=== PATIENT | male | born 1985 | race Caucasian/White ===

== ENCOUNTER 2025-01-31 07:55 | Inpatient (IN) | payer OTHER ==
--- NOTE | 2025-01-31 08:17 | ED ---
General Adult HPI - General Chief complaint: Shortness of Breath Stated complaint: flu-like symptoms Time Seen by Provider: 01/31/25 08:00 Source: patient, EMS Mode of arrival: EMS Limitations: no limitations - History of Present Illness Initial comments: Dictation was produced using [employer] dictation software. please excuse any grammatical, word or spelling errors. Chief Complaint: 39-year-old male from [facility] detox [facility] for cough History of Present Illness: Patient 39-year-old male he is currently at [facility] detox facility recovering from alcohol. His last alcohol intake was 2 weeks ago. Patient states he has been coughing and short of breath since the second day he was there. He complains of low degree chills, sore throat and nasal congestion. States that his cough is nonproductive. States that everyone at the facility has been coughing. The ROS documented in this emergency department record has been reviewed and confirmed by me. Those systems with pertinent positive or negative responses have been documented in the HPI. All other systems are other negative and/or noncontributory. - Related Data Allergies Allergy/AdvReac Type Severity Reaction Status Date / Time No Known Allergies Allergy Verified 01/31/25 08:05 Review of Systems ROS Statement: Those systems with pertinent positive or pertinent negative responses have been documented in the HPI. ROS Other: All systems not noted in ROS Statement are negative. Past Medical History History of Any Multi-Drug Resistant Organisms: None Reported Past Surgical History: Appendectomy Past Psychological History: Anxiety, Depression Smoking Status: Current some day smoker Past Alcohol Use History: Heavy General Exam - General Exam Comments Initial Comments: PHYSICAL EXAM: General Impression: Alert and oriented x3, not in acute distress HEENT: Normocephalic atraumatic, extra-ocular movements intact, pupils equal and reactive to light bilaterally, dry mucous membranes Cardiovascular: Tachycardic Chest: Able to complete full sentences, no retractions, no tachypnea Abdomen: abdomen soft, non-tender, non-distended, no organomegaly Musculoskeletal: Pulses present and equal in all extremities, no peripheral ed k[place] Motor: no focal deficits noted Neurological: CN II-XII grossly intact, no focal motor or sensory deficits noted Skin: Intact with no visualized rashes Psych: Normal affect and mood Limitations: no limitations Course Vital Signs 01/31/25 01/31/25 01/31/25 07:58 08:06 08:56 Temperature 100.8 F H Pulse Rate 135 H 135 H 138 H Respiratory 17 20 28 H Rate Blood Pressure 107/70 100/65 112/74 O2 Sat by Pulse 94 L 94 L 93 L Oximetry EKG Findings - EKG Comments: EKG Findings:: My EKG interpretation: Ventricular rate 133, sinus tachycardia, QRS 80, QTc 333. No NE prolongation, no QTC prolongation, no ST or T-wave changes noted. Procedures - Sepsis Sepsis Focused Exam #1 Time Sepsis Criteria Met: 10:00 Sepsis Focused Exam Date: 01/31/25 Sepsis Focused Exam Time: 10:00 Sepsis Focused Exam Complete: Yes Vital Signs & RN Notes Reviewed: Yes Capillary Refill: < 2 Seconds: Fingers, Toes Peripheral Pulses: Normal: Radial (R), Radial (L), Posterior Tibialis (R), Posterior Tibialis (L), Dorsalis Pedis (R), Dorsalis Pedis (L) Skin Color: Normal for Patient Respiratory Exam: rales Cardiovascular Exam: tachycardia Medical Decision Making - Medical Decision Making Was pt. sent in by a medical professional or institution (, PA, BUGGY MAN, urgent care, hospital, or [place] health care facility...) When possible be specific @ -No Did you speak to anyone other than the patient for history (EMS, parent, family, police, friend...)? What history was obtained from this source @ -No Did you review nursing and triage notes (agree or disagree)? Why? @ -I reviewed and agree with nursing and triage notes Were old charts reviewed (outside hosp., previous admission, EMS record, old EKG, old radiological studies, urgent care reports/EKG's, [place] health care facility records)? Report findings @ -No old charts were reviewed Differential Diagnosis (chest pain, altered mental status, abdominal pain women, abdominal pain men, vaginal bleeding, musculoskeletal, weakness, fever, dyspnea, syncope, headache, dizziness, GI bleed, back pain, seizure, CVA, palpatations, mental health)? @ -Differential Dyspnea: Coronary syndrome, arrhythmia, tamponade, asthma, COPD, pulmonary embolism, pneumonia, pneumothorax, pulmonary effusion, anaphylaxis, diabetic ketoacidosis, flailed chest, pulmonary contusion, diaphragmatic rupture, anemia, neuromuscular, this is not meant to be an all-inclusive list. EKG interpreted by me (3pts min.). @ -See above X-rays interpreted by me (1pt min.). @ -Chest x-ray shows multilobar pneumonia CT interpreted by me (1pt min.). @ -None done U/S interpreted by me (1pt. min.). @ -None done What testing was considered but not performed or refused? (CT, X-rays, U/S, labs)? Why? @ -None What meds were considered but not given or refused? Why? @ -None Was smoking cessation discussed for >3mins.? @ -No Were there social determinants of health that impacted care today? How? (Homelessness, low income, unemployed, alcoholism, drug addiction, transportation, low edu. Level, literacy, decrease access to med. care, half-way, rehab)? @ -No Was there de-escalation of care discussed even if they declined (Discuss DNR or withdrawal of care, Hospice)? DNR status @ -No What co-morbidities impacted this encounter? (DM, HTN, Smoking, COPD, CAD, Cancer, CVA, ARF, Chemo, Hep., AIDS, mental health diagnosis, sleep apnea, morbid obesity)? @ -None Was patient admitted / discharged? Hospital course, mention meds given and route, prescriptions, significant lab abnormalities, going to OR and other pertinent info. @ -39-year-old male with respiratory infectious symptoms. Unlikely patient suffering from any alcohol withdrawal given that his last alcohol intake was 2 weeks ago. Vital signs shows tachycardia 135 secondary to pyrexia. 94% on room air. Blood pressure is within acceptable limits. Laboratory evaluation obtained. Leukocytosis 17.0. Metabolic panel shows sodium 130. Lactic acidosis less than 4 of 3.6. Coronavirus positive. X-ray shows pneumonia. Patient given antibiotics will be admitted consultation to pulmonology. At this point patient not hypotensive and has a lactic acid that dose is less than 4. Systolic blood pressure is above 90 and MAP is greater than 65. Nonetheless patient given 30 cc/kg bolus. Patient will be admitted with consultation to pulmonology. Given antibiotics. Did you discuss the management of the patient with other professionals (professionals i.e. , PA, BUGGY MAN, lab, RT, psych nurse, social worker masters, gas adjuster, teacher, parole or probation officer, manager case)? Give summary @ -No Was critical care preformed (if so, how long)? @ -No Undiagnosed new problem with uncertain prognosis? @ -No Drug Therapy requiring intensive monitoring for toxicity (Heparin, Nitro, Insulin, Cardizem)? @ -No Were any procedures done? @ -No Diagnosis/symptom? Acute, or Chronic, or Acute on Chronic? Uncomplicated (without systemic symptoms) or Complicated (systemic symptoms)? @ -Multilobar pneumonia Side effects of treatment? @ -No Exacerbation, Progression, or Severe Exacerbation? @ -No Poses a threat to life or bodily function? How? (Chest pain, USA, CT, pneumonia, PE, COPD, DKA, ARF, appy, cholecystitis, CVA, Diverticulitis, Homicidal, Suicidal, threat to staff... and all critical care pts) @ -yes - Lab Data Result diagrams: 01/31/25 08:33 01/31/25 08:33 Lab Results 01/31/25 01/31/25 01/31/25 Range/Units 08:09 08:33 08:33 WBC (3.8-10.6) k/uL RBC (4.30-5.90) m/uL Hgb (13.0-17.5) gm/dL Hct (39.0-53.0) % MCV (80.0-100.0) fL MCH (25.0-35.0) pg MCHC (31.0-37.0) g/dL RDW (11.5-15.5) % Plt Count (150-450) k/uL MPV Neutrophils % (Manual) % Band Neuts % (Manual) % Lymphocytes % (Manual) % Monocytes % (Manual) % Metamyelocytes % % Neutrophils # (Manual) (1.3-7.7) k/uL Lymphocytes # (Manual) (1.0-4.8) k/uL Monocytes # (Manual) (0-1.0) k/uL Metamyelocytes # (Man) (0) k/uL Nucleated RBCs (0-0) /100 WBC Manual Slide Review Toxic Vacuolation RBC Morphology Sodium (137-145) mmol/L Potassium (3.5-5.1) mmol/L Chloride (98-107) mmol/L Carbon Dioxide (22-30) mmol/L Anion Gap mmol/L BUN (9-20) mg/dL Creatinine (0.66-1.25) mg/dL Est GFR (CKD-EPI)AfAm (>60 ml/min/1.73 sqM) Est GFR (CKD-EPI)NonAf (>60 ml/min/1.73 sqM) Glucose (74-99) mg/dL Plasma Lactic Acid Chauncey 3.6 H* (0.7-2.0) mmol/L Calcium (8.4-10.2) mg/dL Magnesium (1.6-2.3) mg/dL Total Bilirubin (0.2-1.3) mg/dL AST (17-59) U/L ALT (4-49) U/L Alkaline Phosphatase (38-126) U/L Troponin I <0.012 (0.000-0.034) ng/mL Total Protein (6.3-8.2) g/dL Albumin (3.5-5.0) g/dL TSH (0.465-4.680) mIU/L Influenza Type A (PCR) Not Detected (Not Detectd) Influenza Type B (PCR) Not Detected (Not Detectd) RSV (PCR) Not Detected (Not Detectd) SARS-CoV-2 (PCR) Detected A (Not Detectd) 01/31/25 01/31/25 Range/Units 08:33 08:33 WBC 17.0 H (3.8-10.6) k/uL RBC 3.92 L (4.30-5.90) m/uL Hgb 12.3 L (13.0-17.5) gm/dL Hct 37.2 L (39.0-53.0) % MCV 95.0 (80.0-100.0) fL MCH 31.4 (25.0-35.0) pg MCHC 33.1 (31.0-37.0) g/dL RDW 13.7 (11.5-15.5) % Plt Count 360 (150-450) k/uL MPV 8.6 Neutrophils % (Manual) 77 % Band Neuts % (Manual) 14 % Lymphocytes % (Manual) 2 % Monocytes % (Manual) 6 % Metamyelocytes % 2 % Neutrophils # (Manual) 15.40 H (1.3-7.7) k/uL Lymphocytes # (Manual) 0.34 L (1.0-4.8) k/uL Monocytes # (Manual) 1.02 H (0-1.0) k/uL Metamyelocytes # (Man) 0.34 H (0) k/uL Nucleated RBCs 0 (0-0) /100 WBC Manual Slide Review Performed Toxic Vacuolation Present RBC Morphology Normal Sodium 130 L (137-145) mmol/L Potassium 4.2 (3.5-5.1) mmol/L Chloride 94 L (98-107) mmol/L Carbon Dioxide 25 (22-30) mmol/L Anion Gap 11 mmol/L BUN 11 (9-20) mg/dL Creatinine 1.27 H (0.66-1.25) mg/dL Est GFR (CKD-EPI)AfAm 82 (>60 ml/min/1.73 sqM) Est GFR (CKD-EPI)NonAf 71 (>60 ml/min/1.73 sqM) Glucose 111 H (74-99) mg/dL Plasma Lactic Acid Chauncey (0.7-2.0) mmol/L Calcium 8.0 L (8.4-10.2) mg/dL Magnesium 1.5 L (1.6-2.3) mg/dL Total Bilirubin 1.2 (0.2-1.3) mg/dL AST 39 (17-59) U/L ALT 39 (4-49) U/L Alkaline Phosphatase 105 (38-126) U/L Troponin I (0.000-0.034) ng/mL Total Protein 5.7 L (6.3-8.2) g/dL Albumin 3.0 L (3.5-5.0) g/dL TSH 1.050 (0.465-4.680) mIU/L Influenza Type A (PCR) (Not Detectd) Influenza Type B (PCR) (Not Detectd) RSV (PCR) (Not Detectd) SARS-CoV-2 (PCR) (Not Detectd) Disposition Clinical Impression: Pneumonia Disposition: ADMITTED IP TO THIS [facility] Condition: Serious Referrals: None,Stated [Primary Care Provider] - 1-2 days Decision Time: 09:59
[2025-01-31] MEDS: ACETAMINOPHEN TAB 500 MG TAB PO STA (08:55)
[2025-01-31] MEDS: SODIUM CHLORIDE 0.9% 1,000 ML IV STA (08:56)
[2025-01-31 09:00] LABS: Influenza A Not Detected (Not Detectd); Influenza B Not Detected (Not Detectd); RSV Not Detected (Not Detectd)
[2025-01-31 09:02] LABS: AST 39 U/L (17-59); African American GFR (CKD) 82 (>60 ml/min/1.73 sqM); Alkaline Phosphatase 105 U/L (38-126); Anion Gap 11 mmol/L; Blood Urea Nitrogen 11 mg/dL (9-20); Carbon Dioxide 25 mmol/L (22-30); Chloride 94 mmol/L (98-107); Glucose 111 mg/dL (74-99); Magnesium 1.5 mg/dL (1.6-2.3); Non-African American GFR(CKD) 71 (>60 ml/min/1.73 sqM); Potassium 4.2 mmol/L (3.5-5.1); Sodium 130 mmol/L (137-145); Total Bilirubin 1.2 mg/dL (0.2-1.3); Total Protein 5.7 g/dL (6.3-8.2)
--- NOTE | 2025-01-31 09:03 | XR ---
EXAMINATION TYPE: XR chest 2V DATE OF EXAM: 01/31/2025 8:55 AM COMPARISON: None TECHNIQUE: XR chest 2V Frontal and lateral views of the chest. CLINICAL INDICATION:Male, 39 years old with history of cough; FINDINGS: Lungs/Pleura: Bibasilar airspace opacities with a large left upper lobe consolidative opacity. Pulmonary vascularity: Unremarkable. Heart/mediastinum: Cardiomediastinal silhouette is unremarkable. Musculoskeletal: No acute osseous pathology. IMPRESSION: Bibasilar airspace opacities with a large left upper lobe consolidative opacity. Findings are favored to represent pneumonia. Continued surveillance is recommended. [facility], , 01/31/2025 9:00 AM
[2025-01-31 09:09] LABS: ALT 39 U/L (4-49)
[2025-01-31 09:12] LABS: HCT 37.2 % (39.0-53.0); HGB 12.3 gm/dL (13.0-17.5); MCH 31.4 pg (25.0-35.0); MCHC 33.1 g/dL (31.0-37.0); Mean Platelet Volume 8.6; Platelet Count 360 k/uL (150-450); RBC 3.92 m/uL (4.30-5.90); RDW 13.7 % (11.5-15.5)
[2025-01-31 09:51] LABS: Band Neutrophils % 14 %; Lymphocytes # (M) 0.34 k/uL (1.0-4.8); Metamyelocytes # (M) 0.34 k/uL (0); Metamyelocytes % 2 %; Monocytes # (M) 1.02 k/uL (0-1.0); Neutrophils % (M) 77 %; Nucleated Red Blood Cells 0 /100 WBC (0-0); RBC Morphology Normal; Total Cells Counted 201; Toxic Vacuolation Present
[2025-01-31] MEDS ORDERED: PNEUMONIA PROTOCOL UTILIZED 1 EACH MISC PO PRN (09:54)
[2025-01-31] MEDS: SODIUM CHLORIDE 0.9% IV STA (10:47)
[2025-01-31] MEDS: cefTRIAXone IN SWFI 1,000 MG/10 ML SYRINGE IVP STA (10:48)
[2025-01-31] MEDS: MAGNESIUM SULFATE-D5W PMX 1 GM in DEXTROSE/WATER 1 100ML.BAG IVPB SCH (10:59)
[2025-01-31] MEDS: AZITHROMYCIN 500 MG in SODIUM CHLORIDE 0.9% 250 ML IVPB STA (11:00)
--- NOTE | 2025-01-31 11:05 | P.HPIM ---
History of Present Illness Patient is a 59-year-old male currently at [facility] facility for alcohol use came in with 2 weeks of patient had fevers yesterday at. Patient is found to have temperature of 100.8 here. Patient has a left upper lobe pneumon ia Patient was having cough and sputum production for 2 weeks. Sputum cultures and blood cultures were ordered and were sent. Patient is coughing nonstop patient has been sick for 2 weeks patient is also positive for COVID-19. Patient has lactic acidosis with highly elevated lactic acid and is septic. REVIEW OF SYSTEMS: All other systems are negative except those mentioned in the HPI PHYSICAL EXAMINATION: GENERAL: The patient is alert and oriented x3, not in any acute distress. Well d eveloped, well nourished. HEENT: Pupils are round and equally reacting to light. EOMI. No scleral icterus. No conjunctival pallor. Normocephalic, atraumatic. No pharyngeal erythema. No thyromegaly. CARDIOVASCULAR: S1 and S2 present. No murmurs, rubs, or gallops. PULMONARY: Crackles in the left upper lung keith. ABDOMEN: Soft, nontender, nondistended, normoactive bowel sounds. No palpable organomegaly. MUSCULOSKELETAL: No joint swelling or deformity. EXTREMITIES: No cyanosis, clubbing, or pedal edema. NEUROLOGICAL: Gross neurological examination did not reveal any focal deficits. SKIN: No rashes. Assessment and plan -Sepsis secondary to left upper lobe pneumonia: Possibly of staphylococcal pneumonia cannot be ruled out sputum cultures were obtained. Patient will be switched to doxycycline to cover MRSA he has any pneumonia secondary to MRSA. Patient most probably has pneumococcal pneumonia. Patient also started on Rocephin as well. Azithromycin will be discontinued. Patient will be started on IV normal saline at 130 cc/h. Patient probably has COVID-19 and secondary bacterial infection -COVID-19 positive test probably had COVID-19 14 days ago presently secondary bacterial pneumonia -Acute renal failure prerenal azotemia vasomotor nephropathy and acute treatment necrosis from sepsis patient currently on iron. Repeat labs tomorrow -Lactic acidosis secondary to sepsis Alcohol use: Coming from rehab DVT prophylaxis: Early ambulation text Past Medical History History of Any Multi-Drug Resistant Organisms: None Reported Past Surgical History: Appendectomy Past Psychological History: Anxiety, Depression Smoking Status: Current some day smoker Past Alcohol Use History: Heavy Medications and Allergies Allergies Allergy/AdvReac Type Severity Reaction Status Date / Time No Known Allergies Allergy Verified 01/31/25 08:05 Physical Exam Vitals: Vital Signs Temp Pulse Resp BP Pulse Ox 01/31/25 08:56 138 H 28 H 112/74 93 L 01/31/25 08:06 135 H 20 100/65 94 L 01/31/25 07:58 100.8 F H 135 H 17 107/70 94 L Intake and Output 01/30/25 01/31/25 01/31/25 22:59 06:59 14:59 Other: Weight 72.575 kg Results CBC & Chem 7: 01/31/25 08:33 01/31/25 08:33 Labs: Abnormal Lab Results - Last 24 Hours (Table) 01/31/25 01/31/25 01/31/25 Range/Units 08:09 08:33 08:33 WBC 17.0 H (3.8-10.6) k/uL RBC 3.92 L (4.30-5.90) m/uL Hgb 12.3 L (13.0-17.5) gm/dL Hct 37.2 L (39.0-53.0) % Neutrophils # (Manual) 15.40 H (1.3-7.7) k/uL Lymphocytes # (Manual) 0.34 L (1.0-4.8) k/uL Monocytes # (Manual) 1.02 H (0-1.0) k/uL Metamyelocytes # (Man) 0.34 H (0) k/uL Sodium (137-145) mmol/L Chloride (98-107) mmol/L Creatinine (0.66-1.25) mg/dL Glucose (74-99) mg/dL Plasma Lactic Acid Chauncey 3.6 H* (0.7-2.0) mmol/L Calcium (8.4-10.2) mg/dL Magnesium (1.6-2.3) mg/dL Total Protein (6.3-8.2) g/dL Albumin (3.5-5.0) g/dL SARS-CoV-2 (PCR) Detected A (Not Detectd) 01/31/25 Range/Units 08:33 WBC (3.8-10.6) k/uL RBC (4.30-5.90) m/uL Hgb (13.0-17.5) gm/dL Hct (39.0-53.0) % Neutrophils # (Manual) (1.3-7.7) k/uL Lymphocytes # (Manual) (1.0-4.8) k/uL Monocytes # (Manual) (0-1.0) k/uL Metamyelocytes # (Man) (0) k/uL Sodium 130 L (137-145) mmol/L Chloride 94 L (98-107) mmol/L Creatinine 1.27 H (0.66-1.25) mg/dL Glucose 111 H (74-99) mg/dL Plasma Lactic Acid Chauncey (0.7-2.0) mmol/L Calcium 8.0 L (8.4-10.2) mg/dL Magnesium 1.5 L (1.6-2.3) mg/dL Total Protein 5.7 L (6.3-8.2) g/dL Albumin 3.0 L (3.5-5.0) g/dL SARS-CoV-2 (PCR) (Not Detectd)
[2025-01-31] MEDS: SODIUM CHLORIDE 0.9% 1,000 ML IV SCH (12:31)
[2025-01-31] MEDS: DOXYCYCLINE 100 MG in SODIUM CHLORIDE 0.9% 100 ML IVPB SCH (12:34)
[2025-01-31] MEDS: ACETAMINOPHEN TAB 500 MG TAB PO PRN (14:17)
--- NOTE | 2025-01-31 14:21 | P.CNPUL ---
History of Present Illness Consult date: 01/31/25 Reason for consult: dyspnea, hypoxemia, pneumonia History of present illness: This is a 39-year-old male patient alcoholic was undergoing detoxification at [facility]. Approximate 10 days ago, the patient developed symptoms of URI and subsequently, his condition was waxing and waning and progressively got worse over the past 3 to 4 days. The patient had increased cough and his cough was becoming more vigorous with sputum production and the patient was feeling progressively more sick and he was spiking temperatures in addition. No pleu risy. No hemoptysis. Based on those symptoms, the patient presented to the Emergency Department. In the ED, the patient was found to be afebrile and tachycardic. Normotensive. Pulse ox on room air oxygen was 92 to 93%. White cell count was at 17, hemoglobin 12.3 and a platelet count of 360. BUN of 11 with a creatinine of 1.2 and sodium levels at 130 and a potassium level is at 4.2. Lactic acid level was 3.6 down to 3.4. Troponins are negative. LFTs are normal. COVID-19 testing is still positive. The patient had a chest x-ray that showed extensive left upper lobe consolidation/airspace disease and the patient had a large area of consolidative process in the left upper lobe. There was also bibasilar airspace changes. Based on that, the patient was started on broad-spectrum antibiotics. The patient is currently on IV Rocephin and doxycycline. Sputum Gram stain and culture was ordered. His procalcitonin level needs to be checked. Blood culture is to be checked in addition to sputum Gram stain and culture. No signs of any delirium tremens. No altered mentation. He seems to be quite comfortable at this point in time. He is also on IV fluids with normal citrate of 130 cc an hour. Review of Systems Constitutional: Reports fatigue, Reports weakness Eyes: denies as per HPI, denies blurred vision, denies bulging eye, denies decreased vision, denies diplopia, denies discharge, denies dry eye, denies ir ritation, denies itching, denies pain, denies photophobia, denies loss of peripheral vision, denies loss of vision, denies tunnel vision/blind spots Ears: deny: decreased hearing, ear discharge, earache, tinnitus Ears, nose, mouth and throat: Reports as per HPI Breasts: absent: as per HPI, gynecomastia Cardiovascular: Reports decreased exercise tolerance Respiratory: Reports congestion, Reports cough, Reports cough with sputum, Reports dyspnea Gastrointestinal: Reports as per HPI Genitourinary: Reports as per HPI Musculoskeletal: Reports as per HPI Musculoskeletal: absent: ankle pain, ankle stiffness, ankle swelling, as per HPI, elbow pain, elbow stiffness, elbow swelling, foot pain, foot stiffness, foot swelling, hand pain, hand stiffness, hand swelling, hip pain, hip stiffness, hip swelling, knee pain, knee stiffness, knee swelling, shoulder pain, shoulder stiffness, shoulder swelling, wrist pain, wrist stiffness, wrist swelling Integumentary: Reports as per HPI Neurological: Reports as per HPI Psychiatric: Reports as per HPI Endocrine: Reports as per HPI Hematologic/Lymphatic: Reports as per HPI Allergic/Immunologic: Reports as per HPI Past Medical History Additional Past Medical History / Comment(s): alcoholism fifth of Vodka History of Any Multi-Drug Resistant Organisms: None Reported Past Surgical History: Appendectomy Past Psychological History: Anxiety, Depression Smoking Status: Current some day smoker Past Alcohol Use History: Heavy Medications and Allergies Home Medications Medication Instructions Recorded Confirmed Type Acetaminophen [Tylenol] 650 mg PO Q4H PRN MDD 2600 mg 01/31/25 01/31/25 History Calcium Phos/D3/Magnesium/Zinc 1 tab PO TID PRN 01/31/25 01/31/25 History [Dbhrxuq-Lfc-Iksh-Vitamin D3] Chlorpheniramine Maleate 4 mg PO Q4H PRN 01/31/25 01/31/25 History [Chlor-Trimeton] Ibuprofen [Motrin Ib] 600 mg PO Q6H PRN 01/31/25 01/31/25 History Loperamide HCl [Imodium A-D] 4 mg PO QID PRN MDD 16mg 01/31/25 01/31/25 History Melatonin 10 mg PO HS PRN 01/31/25 01/31/25 History Multivitamins, Thera [Multivitamin 1 tab PO DAILY 01/31/25 01/31/25 History (formulary)] Mylanta Regular Strength 30 ml PO Q4H PRN 01/31/25 01/31/25 History Thiamine [Vitamin B-1] 100 mg PO DAILY 01/31/25 01/31/25 History guaiFENesin [guaiFENesin Oral 200 mg PO Q4H PRN 01/31/25 01/31/25 History Solution] ondansetron HCL [Zofran] 8 mg PO Q6H PRN 01/31/25 01/31/25 History traZODone HCL [Desyrel] 50 - 150 mg PO HS PRN 01/31/25 01/31/25 History Allergies Allergy/AdvReac Type Severity Reaction Status Date / Time No Known Allergies Allergy Verified 01/31/25 11:26 Physical Exam Vitals: Vital Signs Temp Pulse Resp BP Pulse Ox 01/31/25 08:56 138 H 28 H 112/74 93 L 01/31/25 08:06 135 H 20 100/65 94 L 01/31/25 07:58 100.8 F H 135 H 17 107/70 94 L Intake and Output 01/30/25 01/31/25 01/31/25 22:59 06:59 14:59 Other: Weight 72.575 kg GENERAL: The patient is alert and oriented x3, not in any acute distress. Well developed, well nourished. The patient remains on room air oxygen. HEENT: Pupils are round and equally reacting to light. EOMI. No scleral icterus. No conjunctival pallor. Normocephalic, atraumatic. No pharyngeal erythema. No thyromegaly. CARDIOVASCULAR: S1 and S2 present. No murmurs, rubs, or gallops. PULMONARY: Crackles in the left upper lung keith. ABDOMEN: Soft, nontender, nondistended, normoactive bowel sounds. No palpable organomegaly. MUSCULOSKELETAL: No joint swelling or deformity. EXTREMITIES: No cyanosis, clubbing, or pedal edema. NEUROLOGICAL: Gross neurological examination did not reveal any focal deficits. SKIN: No rashes. Results - Laboratory Findings CBC and BMP: 01/31/25 08:33 01/31/25 08:33 Abnormal lab findings: Abnormal Labs 01/31/25 01/31/25 01/31/25 08:09 08:33 08:33 WBC 17.0 H RBC 3.92 L Hgb 12.3 L Hct 37.2 L Neutrophils # (Manual) 15.40 H Lymphocytes # (Manual) 0.34 L Monocytes # (Manual) 1.02 H Metamyelocytes # (Man) 0.34 H Sodium Chloride Creatinine Glucose Plasma Lactic Acid Chauncey 3.6 H* Calcium Magnesium Total Protein Albumin SARS-CoV-2 (PCR) Detected A 01/31/25 08:33 WBC RBC Hgb Hct Neutrophils # (Manual) Lymphocytes # (Manual) Monocytes # (Manual) Metamyelocytes # (Man) Sodium 130 L Chloride 94 L Creatinine 1.27 H Glucose 111 H Plasma Lactic Acid Chauncey Calcium 8.0 L Magnesium 1.5 L Total Protein 5.7 L Albumin 3.0 L SARS-CoV-2 (PCR) - Diagnostic Findings Chest x-ray: image reviewed Assessment and Plan Plan: Acute multilobar pneumonia with extensive consolidation of the left upper lobe and bibasilar airspace disease. Presentation is suggestive of bacterial pneumonia that follows an acute viral/COVID-19 infection. The patient has alcoholism. No reported aspiration. He was at [facility]. Acute COVID-19 infection, and the patient has had previous COVID-19 infections and this is according to him his third infection. Acute hypoxic respiratory i failure, currently on room air oxygen with a pulse ox of 92% Acute shortness of breath secondary to above Sinus tachycardia secondary to above. Rule out underlying pneumonia and related sepsis Acute kidney injury Alcoholism in the patient drinks a fifth of vodka on a daily basis. No signs of any delirium tremens and the patient is currently undergoing detoxification at [facility]. Plan Monitor oxygenation closely and titrate oxygen flow to maintain saturation above 90% Check procalcitonin level Check blood cultures and sputum cultures Agree on Rocephin and doxycycline IV Solu-Medrol 40 mg every 8 hours Daily chest x-rays Monitor renal function continue IV fluids normal saline Watch for any signs of delirium tremens Will continue to follow.
[2025-01-31] MEDS: ALBUTEROL HFA INHALER INHALATION PRN (15:22)
[2025-01-31] MEDS: methylPREDNISolone SOD SUCCI 40 MG/ML 1 ML VIAL IV SCH (15:23)
[2025-01-31] MEDS: SODIUM CHLORIDE 0.9% 1,000 ML IV ONE (15:43)
[2025-02-01 02:42] LABS: African American GFR (CKD) >90 (>60 ml/min/1.73 sqM); Anion Gap 11 mmol/L; Blood Urea Nitrogen 9 mg/dL (9-20); Calcium 7.9 mg/dL (8.4-10.2); Carbon Dioxide 23 mmol/L (22-30); Chloride 97 mmol/L (98-107); Glucose 119 mg/dL (74-99); Non-African American GFR(CKD) >90 (>60 ml/min/1.73 sqM); Potassium 4.2 mmol/L (3.5-5.1); Sodium 131 mmol/L (137-145)
[2025-02-01 02:53] LABS: HCT 39.4 % (39.0-53.0); HGB 12.7 gm/dL (13.0-17.5); MCH 31.5 pg (25.0-35.0); MCHC 32.3 g/dL (31.0-37.0); MCV 97.5 fL (80.0-100.0); Mean Platelet Volume 8.5; Platelet Count 448 k/uL (150-450); RBC 4.04 m/uL (4.30-5.90); RDW 13.9 % (11.5-15.5); WBC 25.1 k/uL (3.8-10.6)
--- NOTE | 2025-02-01 07:06 | XR ---
EXAMINATION TYPE: XR chest 1V DATE OF EXAM: 02/01/2025 4:35 AM COMPARISON: Chest radiographs from 01/31/2025 TECHNIQUE: XR chest 1V Frontal view of the chest. CLINICAL INDICATION:Male, 39 years old with history of Follow-up pneumonia; FINDINGS: Lungs/Pleura: No pleural effusion or pneumothorax. Increasing right upper lung patchy opacities with significant increase of left lung consolidation with air bronchograms most prominent within the left upper and midlung. Pulmonary vascularity: Unremarkable. Heart/mediastinum: Cardiomediastinal silhouette is partially obscured due to overlying and adjacent o pacities. Musculoskeletal: No acute osseous pathology. IMPRESSION: Overall worsening left lung consolidation and right upper lung patchy airspace opacities. Favored to represent worsening pneumonia. [facility], , 02/01/2025 7:04 AM
[2025-02-01] MEDS ORDERED: AZITHROMYCIN 500 MG in SODIUM CHLORIDE 0.9% 250 ML IVPB SCH (09:00)
[2025-02-01] MEDS ORDERED: VANCOMYCIN IV PER PHARMACY 1 EACH MISC MISCELLANE PRN (09:48)
[2025-02-01] MEDS: PIPERACILLIN-TAZOBACTAM 3.375 GM in SODIUM CHLORIDE 0.9% 100 ML IVPB SCH (10:11)
[2025-02-01] MEDS: LEVOFLOXACIN 750 MG TAB PO SCH (10:19)
[2025-02-01] MEDS: VANCOMYCIN 1,250 MG in SODIUM CHLORIDE 0.9% 250 ML IVPB ONE (10:59)
--- NOTE | 2025-02-01 11:36 | P.PN ---
Subjective Patient is a 59-year-old male currently at [facility] for alcohol use came in with 2 weeks of patient had fevers yesterday at. Patient is found to have temperature of 100.8 here. Patient has a left upper lobe pneumonia Patient was having cough and sputum production for 2 weeks. Sputum cultures and blood cultures were ordered and were sent. Patient is coughing nonstop patient has been sick for 2 weeks patient is also positive for COVID-19. Patient has lactic acidosis with highly elevated lactic acid and is septic. 02/01/2025 Patient was hypotensive yesterday evening after fluid resuscitate him patient is feeling little bit better today chest x-ray showed worsening infiltrate patient was switched to vancomycin, piperacillin/tazobactam and levofloxacin to cover MRSA and atypical pneumonia as well. Urine Legionella antigen is pending PHYSICAL EXAMINATION: GENERAL: The patient is alert and oriented x3, not in any acute distress. Well developed, well nourished. HEENT: Pupils are round and equally reacting to light. EOMI. No scleral icterus. No conjunctival pallor. Normocephalic, atraumatic. No pharyngeal erythema. No thyromegaly. CARDIOVASCULAR: S1 and S2 present. No murmurs, rubs, or gallops. PULMONARY: Crackles in the left upper lung keith. ABDOMEN: Soft, nontender, nondistended, normoactive bowel sounds. No palpable organomegaly. MUSCULOSKELETAL: No joint swelling or deformity. EXTREMITIES: No cyanosis, clubbing, or pedal edema. NEUROLOGICAL: Gross neurological examination did not reveal any focal deficits. SKIN: No rashes. Assessment and plan -Severe sepsis secondary to left upper lobe pneumonia: Possibly of staphylococcal pneumonia cannot be ruled out sputum cultures were obtained. Patient COVID-19 is positive as well. Patient is presently on IV vancomycin piperacillin/tazobactam and levofloxacin. -COVID-19 positive test probably had COVID-19 14 days ago presently secondary bacterial pneumonia -Acute renal failure prerenal azotemia vasomotor nephropathy and acute treatment necrosis from sepsis, improved repeat labs tomorrow -Lactic acidosis secondary to sepsis Alcohol use: Coming from rehab DVT prophylaxis: Early ambulation text Objective - Vital Signs Vital signs: Vital Signs Temp 98.4 F 02/01/25 08:08 Pulse 103 H 02/01/25 08:08 Resp 20 02/01/25 08:08 BP 122/82 02/01/25 08:08 Pulse Ox 92 L 02/01/25 08:08 FiO2 21 01/31/25 14:29 Intake & Output 01/31/25 02/01/25 02/01/25 18:59 06:59 18:59 Weight 72.575 kg - Labs CBC & Chem 7: 02/01/25 00:00 02/01/25 00:00 Labs: Abnormal Lab Results - Last 24 Hours (Table) 01/31/25 01/31/25 01/31/25 Range/Units 12:04 12:04 14:59 WBC (3.8-10.6) k/uL RBC (4.30-5.90) m/uL Hgb (13.0-17.5) gm/dL Sodium (137-145) mmol/L Chloride (98-107) mmol/L Glucose (74-99) mg/dL Plasma Lactic Acid Chauncey 3.4 H* 4.2 H* (0.7-2.0) mmol/L Calcium (8.4-10.2) mg/dL Procalcitonin 5.71 H (0.02-0.50) ng/mL 01/31/25 01/31/25 02/01/25 Range/Units 19:10 23:41 00:00 WBC 25.1 H (3.8-10.6) k/uL RBC 4.04 L (4.30-5.90) m/uL Hgb 12.7 L (13.0-17.5) gm/dL Sodium (137-145) mmol/L Chloride (98-107) mmol/L Glucose (74-99) mg/dL Plasma Lactic Acid Chauncey 4.6 H* 3.4 H* (0.7-2.0) mmol/L Calcium (8.4-10.2) mg/dL Procalcitonin (0.02-0.50) ng/mL 02/01/25 02/01/25 02/01/25 Range/Units 00:00 05:39 10:23 WBC (3.8-10.6) k/uL RBC (4.30-5.90) m/uL Hgb (13.0-17.5) gm/dL Sodium 131 L (137-145) mmol/L Chloride 97 L (98-107) mmol/L Glucose 119 H (74-99) mg/dL Plasma Lactic Acid Chauncey 2.2 H* 2.3 H* (0.7-2.0) mmol/L Calcium 7.9 L (8.4-10.2) mg/dL Procalcitonin (0.02-0.50) ng/mL
--- NOTE | 2025-02-01 14:00 | P.PN ---
Subjective Progress Note Date: 02/01/25 This is a 39-year-old male patient alcoholic was undergoing detoxification at [facility]. Approximate 10 days ago, the patient developed symptoms of URI and subsequently, his condition was waxing and waning and progressively got worse over the past 3 to 4 days. The patient had increased cough and his cough was becoming more vigorous with sputum production and the patient was feeling progressively more sick and he was spiking temperatures in addition. No pleurisy. No hemoptysis. Based on those symptoms, the patient presented to the Emergency Department. In the ED, the patient was found to be afebrile and tachycardic. Normotensive. Pulse ox on room air oxygen was 92 to 93%. White cell count was at 17, hemoglobin 12.3 and a platelet count of 360. BUN of 11 with a creatinine of 1.2 and sodium levels at 130 and a potassium level is at 4.2. Lactic acid level was 3.6 down to 3.4. Troponins are negative. LFTs are normal. COVID-19 testing is still positive. The patient had a chest x-ray that showed extensive left upper lobe consolidation/airspace disease and the patient had a large area of consolidative process in the left upper lobe. There was also bibasilar airspace changes. Based on that, the patient was started on broad-spectrum antibiotics. The patient is currently on IV Rocephin and doxycycline. Sputum Gram stain and culture was ordered. His procalcitonin level needs to be checked. Blood culture is to be checked in addition to sputum Gram stain and culture. No signs of any delirium tremens. No altered mentation. He seems to be quite comfortable at this point in time. He is also on IV fluids with normal citrate of 130 cc an hour. On 02/01/2025, the patient is being seen in follow-up in the emergency department. Overnight, the patient was kept in the ED as he was being treated for extensive left lung pneumonia. He is afebrile. His left ureteral cardiac complaints yesterday. Hemodynamically stable. Nevertheless, the follow-up chest x-ray shows marked progression of the left upper lobe pulmonary consolidation and the patient has extensive consolidation in the left upper lobe. The white cell count is up to 25, it was 12.7 and a platelet count is at 448. Electrolytes are all within normal limits. Lactic acid level dropped from 3.4 down to 1.8. His procalcitonin level is at 5.7. He is positive for COVID- 19. Based on that, further antibiotic adjustments were done and I put the patient on a combination of Zosyn and vancomycin and Levaquin. Objective - Vital Signs Vital signs: Vital Signs Temp 98.4 F 02/01/25 08:08 Pulse 103 H 02/01/25 08:08 Resp 20 02/01/25 08:08 BP 122/82 02/01/25 08:08 Pulse Ox 92 L 02/01/25 08:08 FiO2 21 01/31/25 14:29 Intake & Output 01/31/25 02/01/25 02/01/25 18:59 06:59 18:59 Weight 72.575 kg - Exam GENERAL: The patient is alert and oriented x3, not in any acute distress. Well developed, well nourished. The patient remains on room air oxygen. HEENT: Pupils are round and equally reacting to light. EOMI. No scleral icterus. No conjunctival pallor. Normocephalic, atraumatic. No pharyngeal erythema. No thyromegaly. CARDIOVASCULAR: S1 and S2 present. No murmurs, rubs, or gallops. PULMONARY: Crackles in the left upper lung keith. ABDOMEN: Soft, nontender, nondistended, normoactive bowel sounds. No palpable organomegaly. MUSCULOSKELETAL: No joint swelling or deformity. EXTREMITIES: No cyanosis, clubbing, or pedal edema. NEUROLOGICAL: Gross neurological examination did not reveal any focal deficits. SKIN: No rashes. - Labs CBC & Chem 7: 02/01/25 00:00 02/01/25 00:00 Labs: Abnormal Lab Results - Last 24 Hours (Table) 01/31/25 01/31/25 01/31/25 Range/Units 08:33 12:04 12:04 WBC (3.8-10.6) k/uL RBC (4.30-5.90) m/uL Hgb (13.0-17.5) gm/dL Neutrophils # (Manual) 15.40 H (1.3-7.7) k/uL Lymphocytes # (Manual) 0.34 L (1.0-4.8) k/uL Monocytes # (Manual) 1.02 H (0-1.0) k/uL Metamyelocytes # (Man) 0.34 H (0) k/uL Sodium (137-145) mmol/L Chloride (98-107) mmol/L Glucose (74-99) mg/dL Plasma Lactic Acid Chauncey 3.4 H* (0.7-2.0) mmol/L Calcium (8.4-10.2) mg/dL Procalcitonin 5.71 H (0.02-0.50) ng/mL 01/31/25 01/31/25 01/31/25 Range/Units 14:59 19:10 23:41 WBC (3.8-10.6) k/uL RBC (4.30-5.90) m/uL Hgb (13.0-17.5) gm/dL Neutrophils # (Manual) (1.3-7.7) k/uL Lymphocytes # (Manual) (1.0-4.8) k/uL Monocytes # (Manual) (0-1.0) k/uL Metamyelocytes # (Man) (0) k/uL Sodium (137-145) mmol/L Chloride (98-107) mmol/L Glucose (74-99) mg/dL Plasma Lactic Acid Chauncey 4.2 H* 4.6 H* 3.4 H* (0.7-2.0) mmol/L Calcium (8.4-10.2) mg/dL Procalcitonin (0.02-0.50) ng/mL 02/01/25 02/01/25 02/01/25 Range/Units 00:00 00:00 05:39 WBC 25.1 H (3.8-10.6) k/uL RBC 4.04 L (4.30-5.90) m/uL Hgb 12.7 L (13.0-17.5) gm/dL Neutrophils # (Manual) (1.3-7.7) k/uL Lymphocytes # (Manual) (1.0-4.8) k/uL Monocytes # (Manual) (0-1.0) k/uL Metamyelocytes # (Man) (0) k/uL Sodium 131 L (137-145) mmol/L Chloride 97 L (98-107) mmol/L Glucose 119 H (74-99) mg/dL Plasma Lactic Acid Chauncey 2.2 H* (0.7-2.0) mmol/L Calcium 7.9 L (8.4-10.2) mg/dL Procalcitonin (0.02-0.50) ng/mL Assessment and Plan Plan: Acute multilobar pneumonia with extensive consolidation of the left upper lobe and bibasilar airspace disease. Presentation is suggestive of bacterial pneumonia that follows an acute viral/COVID-19 infection. The patient has alcoholism. No reported aspiration. He was at [facility]. The patient has developed worsening in the left upper lobe consolidation compared to yesterday. He continues to be hypoxic on 4 L of oxygen by nasal cannula. White cell count is on the rise. Procalcitonin level is above 5. Acute COVID-19 infection, and the patient has had previous COVID-19 infections and this is according to him his third infection. Acute hypoxic respiratory failure, currently on 4 L of oxygen with a pulse ox of 92% Acute shortness of breath secondary to above Sinus tachycardia secondary to above. Rule out underlying pneumonia and related sepsis, improving Lactic acidosis, improving Acute kidney injury, improved Alcoholism in the patient drinks a fifth of vodka on a daily basis. No signs of any delirium tremens and the patient is currently undergoing detoxification at [facility]. Plan Monitor oxygenation closely and titrate oxygen flow to maintain saturation above 90%, currently on 4 L of oxygen nasal cannula Check procalcitonin level is elevated above 5 Check blood cultures and sputum cultures Switched antibiotics and put the patient on a combination of Zosyn and Levaquin and vancomycin pending further cultures. Sputum sample has been collected. IV Solu-Medrol 40 mg every 8 hours Daily chest x-rays IV fluids normal saline Watch for any signs of delirium tremens Will continue to follow. Time with Patient: Greater than 30
[2025-02-01] MEDS: VANCOMYCIN 1,250 MG in SODIUM CHLORIDE 0.9% 250 ML IVPB SCH (18:43)
[2025-02-02] MEDS: DEXAMETHASONE SOD PHOSPHATE 10 MG/ML 1 ML VIAL IVP SCH (09:12)
--- NOTE | 2025-02-02 09:42 | XR ---
EXAMINATION TYPE: XR chest 1V DATE OF EXAM: 02/02/2025 4:01 AM COMPARISON: 02/01/2025 CLINICAL INDICATION: Male, 39 years old with history of Follow-up pneumonia, TECHNIQUE: Single frontal view of the chest is obtained. FINDINGS: Airspace consolidation persists left upper lobe which is slightly improved. Additional patc hy infiltrate right perihilar and right upper lobe. Cardiomediastinal silhouette is stable. IMPRESSION: Airspace consolidation as noted may be slightly improved left upper lobe [facility], , 02/02/2025 9:40 AM
[2025-02-02] MEDS: VANCOMYCIN TROUGH DUE 1 EACH MISC MISCELLANE ONE (09:56)
[2025-02-02 10:10] LABS: ALT 61 U/L (4-49); AST 41 U/L (17-59); African American GFR (CKD) >90 (>60 ml/min/1.73 sqM); Albumin 2.5 g/dL (3.5-5.0); Albumin/Globulin Ratio 0.9; Alkaline Phosphatase 107 U/L (38-126); Anion Gap 6 mmol/L; Blood Urea Nitrogen 15 mg/dL (9-20); Calcium 8.3 mg/dL (8.4-10.2); Carbon Dioxide 28 mmol/L (22-30); Chloride 99 mmol/L (98-107); Globulin 2.8 g/dL; Glucose 98 mg/dL (74-99); Magnesium 2.3 mg/dL (1.6-2.3); Non-African American GFR(CKD) >90 (>60 ml/min/1.73 sqM); Sodium 133 mmol/L (137-145); Total Bilirubin 0.5 mg/dL (0.2-1.3); Total Protein 5.3 g/dL (6.3-8.2)
[2025-02-02 10:16] LABS: Basophils # (A) 0.1 k/uL (0-0.2); Basophils % (A) 0 %; Eosinophils % (A) 0 %; HCT 43.7 % (39.0-53.0); HGB 13.6 gm/dL (13.0-17.5); Lymphocytes # (A) 0.8 k/uL (1.0-4.8); Lymphocytes % (A) 3 %; MCH 30.4 pg (25.0-35.0); MCHC 31.1 g/dL (31.0-37.0); MCV 97.8 fL (80.0-100.0); Mean Platelet Volume 8.3; Monocytes # (A) 0.9 k/uL (0-1.0); Monocytes % (A) 3 %; Neutrophils # (A) 24.5 k/uL (1.3-7.7); Neutrophils % (A) 92 %; Platelet Count 418 k/uL (150-450); RBC 4.47 m/uL (4.30-5.90); RDW 14.3 % (11.5-15.5); WBC 26.5 k/uL (3.8-10.6)
[2025-02-02] MEDS: ALBUTEROL HFA INHALER INHALATION SCH (11:20)
--- NOTE | 2025-02-02 14:18 | P.PN ---
Subjective Progress Note Date: 02/02/25 This is a 39-year-old male patient alcoholic was undergoing detoxification at [facility]. Approximate 10 days ago, the patient developed symptoms of URI and subsequently, his condition was waxing and waning and progressively got worse over the past 3 to 4 days. The patient had increased cough and his cough was becoming more vigorous with sputum production and the patient was feeling progressively more sick and he was spiking temperatures in addition. No pleurisy. No hemoptysis. Based on those symptoms, the patient presented to the Emergency Department. In the ED, the patient was found to be afebrile and tachycardic. Normotensive. Pulse ox on room air oxygen was 92 to 93%. White cell count was at 17, hemoglobin 12.3 and a platelet count of 360. BUN of 11 with a creatinine of 1.2 and sodium levels at 130 and a potassium level is at 4.2. Lactic acid level was 3.6 down to 3.4. Troponins are negative. LFTs are normal. COVID-19 testing is still positive. The patient had a chest x-ray that showed extensive left upper lobe consolidation/airspace disease and the patient had a large area of consolidative process in the left upper lobe. There was also bibasilar airspace changes. Based on that, the patient was started on broad-spectrum antibiotics. The patient is currently on IV Rocephin and doxycycline. Sputum Gram stain and culture was ordered. His procalcitonin level needs to be checked. Blood culture is to be checked in addition to sputum Gram stain and culture. No signs of any delirium tremens. No altered mentation. He seems to be quite comfortable at this point in time. He is also on IV fluids with normal citrate of 130 cc an hour. On 02/01/2025, the patient is being seen in follow-up in the emergency department. Overnight, the patient was kept in the ED as he was being treated for extensive left lung pneumonia. He is afebrile. His left ureteral cardiac complaints yesterday. Hemodynamically stable. Nevertheless, the follow-up chest x-ray shows marked progression of the left upper lobe pulmonary consolidation and the patient has extensive consolidation in the left upper lobe. The white cell count is up to 25, it was 12.7 and a platelet count is at 448. Electrolytes are all within normal limits. Lactic acid level dropped from 3.4 down to 1.8. His procalcitonin level is at 5.7. He is positive for COVID- 19. Based on that, further antibiotic adjustments were done and I put the patient on a combination of Zosyn and vancomycin and Levaquin. The patient is seen today February 02, 2025 in follow-up in the emergency department. He is currently sitting up on a stretcher. Awake and alert in no acute distress. He is maintaining O2 saturations in the 90s on 4 L/min per nasal cannula. He is afebrile. Hemodynamically stable. He is still dyspneic with conversation. Dyspneic with minimal exertion. He continues with a loose congested cough. Blood cultures revealed no growth to date. Sputum culture pending. White count 26.5. Hemoglobin 13.6. Platelets 418. Sodium 133. Potassium 4.0. Bicarb 28. BUN 15. Creatinine 0.67. Glucose 98. Procalcitonin was elevated at 5.71. He has been initiated on vancomycin, Zosyn and Levaquin. Today's chest x-ray reveals airspace consolidation persists in the left upper lobe which is slightly improved. Additional patchy infiltrate in the right perihilar right upper lobe. Objective - Vital Signs Vital signs: Vital Signs Temp 97.8 F 02/02/25 07:30 Pulse 93 02/02/25 11:04 Resp 26 H 02/02/25 11:04 BP 114/74 02/02/25 11:04 Pulse Ox 94 L 02/02/25 11:04 FiO2 21 01/31/25 14:29 Intake & Output 02/01/25 02/02/25 02/02/25 18:59 06:59 18:59 Intake Total 1475 Balance 1475 Intake: Intake, IV Titration 725 Amount Piperacillin-Tazobactam 3 100 .375 gm In Sodium Chloride 0.9% 100 ml @ 25 mls/hr IVPB Q8HR [facility] Rx# :[id number] Sodium Chloride 0.9% 1, 375 000 ml @ 75 mls/hr IV . [id number] [facility] Rx#:[id number] Vancomycin 1,250 mg In 250 Sodium Chloride 0.9% 250 ml @ 125 mls/hr IVPB ONCE ONE Rx#:[id number] Oral 750 Other: # Voids 2 - Exam GENERAL EXAM: Alert, pleasant 39-year-old male, on 4 L nasal cannula, fairly comfortable in no apparent distress. HEAD: Normocephalic. EYES: Normal reaction of pupils, equal size. NOSE: Clear with pink turbinates. THROAT: No erythema or exudates. NECK: No masses, no JVD. CHEST: No chest wall deformity. LUNGS: Equal air entry with scattered rhonchi, bilateral expiratory wheeze. CVS: S1 and S2 normal with no audible murmur, regular rhythm. ABDOMEN: No hepatosplenomegaly, normal bowel sounds, no guarding or rigidity. SPINE: No scoliosis or deformity SKIN: No rashes CENTRAL NERVOUS SYSTEM: No focal deficits, tone is normal in all 4 extremities. EXTREMITIES: There is no peripheral edema. No clubbing, no cyanosis. Peripheral pulses are intact. - Labs CBC & Chem 7: 02/02/25 09:30 02/02/25 09:30 Labs: Abnormal Lab Results - Last 24 Hours (Table) 02/02/25 02/02/25 Range/Units 09:30 09:30 WBC 26.5 H (3.8-10.6) k/uL Neutrophils # 24.5 H (1.3-7.7) k/uL Lymphocytes # 0.8 L (1.0-4.8) k/uL Sodium 133 L (137-145) mmol/L Calcium 8.3 L (8.4-10.2) mg/dL ALT 61 H (4-49) U/L Total Protein 5.3 L (6.3-8.2) g/dL Albumin 2.5 L (3.5-5.0) g/dL Microbiology - Last 24 Hours (Table) 01/31/25 10:32 Blood Culture - Preliminary Blood 01/31/25 10:32 Gram Stain - Preliminary Sputum Assessment and Plan Assessment: Acute multilobar pneumonia with extensive consolidation of the left upper lobe and bibasilar airspace disease. Presentation is suggestive of bacterial pneumonia that follows an acute viral/COVID-19 infection. The patient has alcoholism. No reported aspiration. He was at [facility]. The patient has developed worsening in the left upper lobe consolidation compared to yesterday. He continues to be hypoxic on 4 L of oxygen by nasal cannula. White cell count is on the rise. Procalcitonin level is above 5. He remains on Zosyn, Levaquin, vancomycin Acute COVID-19 infection, and the patient has had previous COVID-19 infections and this is according to him his third infection. Acute exacerbation of chronic obstructive pulmonary disease Chronic and ongoing tobacco dependence Acute hypoxic respiratory failure secondary to above, currently on 4 L of oxygen with a pulse ox of 92% Sinus tachycardia secondary to above. Rule out underlying pneumonia and related sepsis, improving Lactic acidosis, improved Acute kidney injury, improved Alcoholism, drinks a fifth of vodka on a daily basis. No signs of any delirium tremens and the patient is currently undergoing detoxification at [facility]. Plan: The patient was seen and evaluated Chest x-ray, labs and medications reviewed Continue Levaquin, Zosyn, vancomycin Initiate Symbicort, albuterol Initiate Decadron 6 mg IVP daily Heparin for DVT prophylaxis Educated regarding smoking cessation NicoDerm patch will be offered Residing at [facility] for alcohol detoxification No signs of acute withdrawal this morning Titrate down the FiO2 as tolerated We will continue to follow I have personally seen and examined the patient, performed the documentation and the assessment and plan as written. Number of minutes spent on the visit: 10 Dictation was produced using [employer] dictation software. Please excuse any grammatical, word or spelling errors.
[2025-02-02] MEDS: VANCOMYCIN 1,500 MG in SODIUM CHLORIDE 0.9% 500 ML 500 ML IVPB SCH (16:25)
[2025-02-02] MEDS: SYMBICORT 160-4.5 MCG INHALER INHALATION SCH (20:09)
[2025-02-02] MEDS: HEPARIN SODIUM,PORCINE 5,000 UNIT/ML 1 ML VIAL SQ SCH (21:57)
--- NOTE | 2025-02-02 22:46 | P.CONS ---
History of Present Illness - Reason for Consult Consult date: 02/02/25 Sepsis Requesting physician: iHen Cordero - Chief Complaint Shortness of breath and cough x days - History of Present Illness Patient is a 39-year-old male with a past medical history significant for anxiety depression alcoholism and current smoker presenting to the hospital 2 days ago from the local [place] where apparently has been coughing and getting more short of breath patient mention breathing was getting worse over the last few days he also have a cough moderate intensity and is bringing up some sputum also complaining of left-sided chest pain mild to moderate intensity without any radiation and was complaining of low-grade fever and chills on presentation to the hospital patient did have a temperature of 100.8 F patient was tachycardic but not hypotensive or hypoxic currently on a 2 L nasal cannula oxygen patient did have a white count of 17,000 which is up to 26.5 creatinine 0.67 lactic acid was elevated liver enzymes are normal procalcitonin elevated tested positive for COVID-19 influenza RSV testing was negative patient did have chest x-ray we did shows bibasilar airspace opacity with a large left upper lobe consolidative opacity finding consistent with pneumonia patient has been treated with Levaquin Zosyn and vancomycin infectious disease was consulted today for further management of antibiotic therapy blood culture negative sputum is growing Haemophilus influenzae Review of Systems Positive point and negatives has been mentioned in the HPI, complete review of systems was performed and all other systems are negative Past Medical History Additional Past Medical History / Comment(s): alcoholism fifth of Vodka History of Any Multi-Drug Resistant Organisms: None Reported Past Surgical History: Appendectomy Past Psychological History: Anxiety, Depression Smoking Status: Current some day smoker Past Alcohol Use History: Heavy Medications and Allergies Home Medications Medication Instructions Recorded Confirmed Type Acetaminophen [Tylenol] 650 mg PO Q4H PRN MDD 2600 mg 01/31/25 01/31/25 History Calcium Phos/D3/Magnesium/Zinc 1 tab PO TID PRN 01/31/25 01/31/25 History [Hsjaoyp-Cio-Mlxq-Vitamin D3] Chlorpheniramine Maleate 4 mg PO Q4H PRN 01/31/25 01/31/25 History [Chlor-Trimeton] Ibuprofen [Motrin Ib] 600 mg PO Q6H PRN 01/31/25 01/31/25 History Loperamide HCl [Imodium A-D] 4 mg PO QID PRN MDD 16mg 01/31/25 01/31/25 History Melatonin 10 mg PO HS PRN 01/31/25 01/31/25 History Multivitamins, Thera [Multivitamin 1 tab PO DAILY 01/31/25 01/31/25 History (formulary)] Mylanta Regular Strength 30 ml PO Q4H PRN 01/31/25 01/31/25 History Thiamine [Vitamin B-1] 100 mg PO DAILY 01/31/25 01/31/25 History guaiFENesin [guaiFENesin Oral 200 mg PO Q4H PRN 01/31/25 01/31/25 History Solution] ondansetron HCL [Zofran] 8 mg PO Q6H PRN 01/31/25 01/31/25 History traZODone HCL [Desyrel] 50 - 150 mg PO HS PRN 01/31/25 01/31/25 History Allergies Allergy/AdvReac Type Severity Reaction Status Date / Time No Known Allergies Allergy Verified 01/31/25 11:26 Physical Exam Vitals: Vital Signs Temp Pulse Pulse Resp BP BP Pulse Ox 02/02/25 11:04 93 26 H 114/74 94 L 02/02/25 07:30 97.8 F 85 18 116/74 97 02/01/25 23:07 97.9 F 96 18 117/82 96 02/01/25 20:35 98.0 F 77 24 129/95 98 02/01/25 16:45 97.6 F 105 H 24 125/88 96 Intake and Output 02/01/25 02/02/25 02/02/25 22:59 06:59 14:59 Intake Total 1475 Balance 1475 Intake: Intake, IV Titration 725 Amount Piperacillin-Tazobactam 3 100 .375 gm In Sodium Chloride 0.9% 100 ml @ 25 mls/hr IVPB Q8HR [facility] Rx# :[id number] Sodium Chloride 0.9% 1, 375 000 ml @ 75 mls/hr IV . [id number] [facility] Rx#:[id number] Vancomycin 1,250 mg In 250 Sodium Chloride 0.9% 250 ml @ 125 mls/hr IVPB ONCE ONE Rx#:[id number] Oral 750 Other: # Voids 2 GENERAL DESCRIPTION: Middle-age male lying in bed, no distress. No tachypnea or accessory muscle of respiration use. HEENT: Shows Pallor , no scleral icterus. Oral mucous membrane is dry. NECK: Trachea central, no thyromegaly. LUNGS: Unlabored breathing. Coarse breath sounds HEART: S1, S2, regular rate and rhythm. No loud murmur ABDOMEN: Soft, no tenderness , guarding or rigidity, no organomegaly EXTREMITIES: No edema of feet. SKIN: No rash, no masses palpable. NEUROLOGICAL: The patient is awake, alert, oriented x3, mood and affect normal. Results CBC & Chem 7: 02/02/25 09:30 02/02/25 09:30 Labs: Abnormal Lab Results - Last 24 Hours (Table) 02/02/25 02/02/25 Range/Units 09:30 09:30 WBC 26.5 H (3.8-10.6) k/uL Neutrophils # 24.5 H (1.3-7.7) k/uL Lymphocytes # 0.8 L (1.0-4.8) k/uL Sodium 133 L (137-145) mmol/L Calcium 8.3 L (8.4-10.2) mg/dL ALT 61 H (4-49) U/L Total Protein 5.3 L (6.3-8.2) g/dL Albumin 2.5 L (3.5-5.0) g/dL Microbiology - Last 24 Hours (Table) 01/31/25 10:32 Gram Stain - Preliminary Sputum Sputum Culture - Preliminary Haemophilus influenzae 01/31/25 10:32 Blood Culture - Preliminary Blood Assessment and Plan (1) Sepsis Current Visit: Yes Status: Acute Code(s): A41.9 - SEPSIS, UNSPECIFIED ORGANISM SNOMED Code(s): 63821528 (2) Pneumonia Current Visit: Yes Status: Acute Code(s): J18.9 - PNEUMONIA, UNSPECIFIED ORGANISM SNOMED Code(s): 687121883 Plan: 1patient presented to hospital with sepsis in this patient who did have fever tachycardia elevated white count source is likely pneumonia likely completed 2 point in the space sputum culture currently growing Haemophilus influenzae 2-patient also tested positive for COVID-19 however clinically behaving more of a secondary bacterial pneumonia with a COVID-19 infection 3-discontinue vancomycin as no evidence of MRSA infection 4-antibiotic can be simplified to Rocephin 2 g daily and continue with Levaquin We will follow on clinical condition and cultures to further adjust medication if needed Thank you for this consultation we will follow the patient along with you Dictation was produced using [employer] dictation software. please excuse any grammatical, word or spelling errors. Time with Patient: Greater than 30
[2025-02-03 06:18] LABS: Basophils # (A) 0.1 k/uL (0-0.2); Basophils % (A) 1 %; Eosinophils % (A) 0 %; HCT 39.2 % (39.0-53.0); HGB 12.5 gm/dL (13.0-17.5); Lymphocytes # (A) 1.1 k/uL (1.0-4.8); Lymphocytes % (A) 5 %; MCH 31.1 pg (25.0-35.0); MCHC 31.8 g/dL (31.0-37.0); MCV 97.8 fL (80.0-100.0); Mean Platelet Volume 8.3; Monocytes # (A) 0.9 k/uL (0-1.0); Monocytes % (A) 4 %; Neutrophils # (A) 22.1 k/uL (1.3-7.7); Neutrophils % (A) 89 %; Platelet Count 412 k/uL (150-450); RBC 4.01 m/uL (4.30-5.90); RDW 14.4 % (11.5-15.5); WBC 24.9 k/uL (3.8-10.6)
[2025-02-03 06:38] LABS: African American GFR (CKD) >90 (>60 ml/min/1.73 sqM); Anion Gap 3 mmol/L; Blood Urea Nitrogen 18 mg/dL (9-20); Calcium 7.7 mg/dL (8.4-10.2); Carbon Dioxide 25 mmol/L (22-30); Chloride 102 mmol/L (98-107); Glucose 130 mg/dL (74-99); Non-African American GFR(CKD) >90 (>60 ml/min/1.73 sqM); Potassium 3.5 mmol/L (3.5-5.1); Sodium 130 mmol/L (137-145)
--- NOTE | 2025-02-03 07:27 | XR ---
EXAMINATION TYPE: XR chest 1V DATE OF EXAM: 02/03/2025 5:35 AM COMPARISON: 02/02/2025 CLINICAL INDICATION: Male, 39 years old with history of Follow-up pneumonia, TECHNIQUE: Single frontal view of the chest is obtained. FINDINGS: Large area of airspace consolidation left upper lobe with air bronchograms is redemonstrate d and appears unchanged. Improving right upper lobe patchy density. Cardiomediastinal silhouette is s table. Bony thorax intact. IMPRESSION: Pneumonia with slight improvement right upper lobe. Stable left upper lobe. [facility], , 02/03/2025 7:24 AM
[2025-02-03] MEDS: NICOTINE 14MG/24HR PATCH TRANSDERM SCH (08:34)
--- NOTE | 2025-02-03 12:09 | CT ---
EXAMINATION TYPE: CT angio chest DATE OF EXAM: 02/03/2025 11:17 AM COMPARISON: None. CLINICAL INDICATION: Male, 39 years old with history of Elevated D-dimer, ? PE, elevated d-dimer, PE , positive for influenza and covid, TECHNIQUE: Axial CT was performed with sagittal and coronal reformats. 3D reconstruction and/or MIP imaging was also performed on a separate workstation. IV CONTRAST: with IV Contrast, patient injected with 100 ml mL of Isovue 370. (None if empty) CT DLP: 348.3 mGycm, Automated exposure control for dose reduction was used. FINDINGS: PULMONARY ARTERIES: The pulmonary arteries and their major tributaries are patent. I do not see janiya dence for sizable filling defect to suggest pulmonary embolic process. LUNGS: Left upper lobe consolidation with air bronchograms seen compatible with pneumonia. There is s cattered groundglass infiltrates throughout both lung keith greatest within the right upper lobe fel t to reflect additional foci of pneumonia. Small left greater than right pleural effusions seen. Mild left basilar compressive atelectasis. MEDIASTINUM: Thoracic aorta is of normal caliber. No evidence for mediastinal mass. No mediastinal lymph nodes greater than 1cm. HEART: Size within normal limits. No significant coronary artery calcifications. HILAR STRUCTURES: No evidence for mass. No hilar lymph nodes greater than 1 cm. UPPER ABDOMEN: No significant abnormality is seen. IMPRESSION: 1. No evidence for Pulmonary embolism at this time. 2. Pneumonia as indicated above. [facility], , 02/03/2025 12:07 PM
--- NOTE | 2025-02-03 12:46 | P.PN ---
Subjective Progress Note Date: 02/03/25 Principal diagnosis: Acute hypoxic respiratory failure with acute haemophilus influenza pneumonia and COVID-19 infection This is a 39-year-old male patient alcoholic was undergoing detoxification at [place]. Approximate 10 days ago, the patient developed symptoms of URI a nd subsequently, his condition was waxing and waning and progressively got worse over the past 3 to 4 days. The patient had increased cough and his cough was becoming more vigorous with sputum production and the patient was feeling progressively more sick and he was spiking temperatures in addition. No pleurisy. No hemoptysis. Based on those symptoms, the patient presented to the Emergency Department. In the ED, the patient was found to be afebrile and tachycardic. Normotensive. Pulse ox on room air oxygen was 92 to 93%. White cell count was at 17, hemoglobin 12.3 and a platelet count of 360. BUN of 11 with a creatinine of 1.2 and sodium levels at 130 and a potassium level is at 4.2. Lactic acid level was 3.6 down to 3.4. Troponins are negative. LFTs are normal. COVID-19 testing is still positive. The patient had a chest x-ray that showed extensive left upper lobe consolidation/airspace disease and the patient had a large area of consolidative process in the left upper lobe. There was also bibasilar airspace changes. Based on that, the patient was started on broad-spectrum antibiotics. The patient is currently on IV Rocephin and doxycycline. Sputum Gram stain and culture was ordered. His procalcitonin level needs to be checked. Blood culture is to be checked in addition to sputum Gram stain and culture. No signs of any delirium tremens. No altered mentatio n. He seems to be quite comfortable at this point in time. He is also on IV fluids with normal citrate of 130 cc an hour. On 02/01/2025, the patient is being seen in follow-up in the emergency depa rtment. Overnight, the patient was kept in the ED as he was being treated for extensive left lung pneumonia. He is afebrile. His left ureteral cardiac complaints yesterday. Hemodynamically stable. Nevertheless, the follow-up chest x-ray shows marked progression of the left upper lobe pulmonary consolidation and the patient has extensive consolidation in the left upper lobe. The white cell count is up to 25, it was 12.7 and a platelet count is at 448. Electrolytes are all within normal limits. Lactic acid level dropped from 3.4 down to 1.8. His procalcitonin level is at 5.7. He is positive for COVID- 19. Based on that, further antibiotic adjustments were done and I put the patient on a combination of Zosyn and vancomycin and Levaquin. The patient is seen today February 02, 2025 in follow-up in the emergency department. He is currently sitting up on a stretcher. Awake and alert in no acute distress. He is maintaining O2 saturations in the 90s on 4 L/min per nasal cannula. He is afebrile. Hemodynamically stable. He is still dyspneic with conversation. Dyspneic with minimal exertion. He continues with a loose congested cough. Blood cultures revealed no growth to date. Sputum culture pending. White count 26.5. Hemoglobin 13.6. Platelets 418. Sodium 133. Potassium 4.0. Bicarb 28. BUN 15. Creatinine 0.67. Glucose 98. Procalcitonin was elevated at 5.71. He has been initiated on vancomycin, Zosyn and Levaquin. Today's chest x-ray reveals airspace consolidation persists in the left upper lobe which is slightly improved. Additional patchy infiltrate in the right perihilar right upper lobe. Patient was seen today on 02/03/2025, remains quite symptomatic but feeling better compared to how he felt on his initial presentation. Chest x-ray continues to show significant dense consolidation in the left upper lobe. CT angiogram of the chest was apparently done and it showed significant consolidation with air bronchograms compatible with pneumonia there is scattered groundglass opacities infiltrates throughout both lungs patient has acute haemophilus influenza pneumonia and in addition to this he may have COVID-19 pneumonia/infection. Patient remains on oxygen at 2 L nasal cannula with O2 sats of 92%. Considering that we have a specific organism to treat, patient is now off vancomycin off Levaquin and he is on Rocephin. CBC continues to show leukocytosis with WC count of 24.9, and his electrolytes showed low sodium of 130 potassium 3.5 the rest of the labs are unremarkable. Chest x-ray and CT of the chest were both reviewed today. Clinically actually the patient seems to be better than expected considering the significant airspace disease noted on the CT of the chest. Objective - Vital Signs Vital signs: Vital Signs Temp 97.6 F 02/03/25 08:30 Pulse 87 02/03/25 08:30 Resp 18 02/03/25 08:30 BP 119/81 02/03/25 08:30 Pulse Ox 92 L 02/03/25 08:30 FiO2 21 01/31/25 14:29 Intake & Output 02/02/25 02/03/25 02/03/25 18:59 06:59 18:59 Intake Total 1000 Balance 1000 Intake: Oral 1000 Other: # Voids 3 - Exam GENERAL EXAM: Alert, pleasant 39-year-old male, on 2 L nasal cannula HEAD: Normocephalic. EYES: Normal reaction of pupils, equal size. NOSE: Clear with pink turbinates. THROAT: No erythema or exudates. NECK: No masses, no JVD. CHEST: No chest wall deformity. LUNGS: Scattered rhonchi noted left more so than right. CVS: S1 and S2 normal with no audible murmur, regular rhythm. ABDOMEN: No hepatosplenomegaly, normal bowel sounds, no guarding or rigidity. SKIN: No rashes CENTRAL NERVOUS SYSTEM: No focal deficits, tone is normal in all 4 extremities. EXTREMITIES: There is no peripheral edema. No clubbing, no cyanosis. Peripheral pulses are intact. - Labs CBC & Chem 7: 02/03/25 05:55 02/03/25 05:55 Labs: Abnormal Lab Results - Last 24 Hours (Table) 02/02/25 02/03/25 02/03/25 Range/Units 15:52 05:55 05:55 WBC 24.9 H (3.8-10.6) k/uL RBC 4.01 L (4.30-5.90) m/uL Hgb 12.5 L (13.0-17.5) gm/dL Neutrophils # 22.1 H (1.3-7.7) k/uL D-Dimer 5.55 H (<0.60) mg/L FEU Sodium 130 L (137-145) mmol/L Glucose 130 H (74-99) mg/dL Calcium 7.7 L (8.4-10.2) mg/dL Microbiology - Last 24 Hours (Table) 01/31/25 10:32 Gram Stain - Preliminary Sputum Sputum Culture - Preliminary Haemophilus influenzae Streptococcus pneumoniae 02/01/25 13:05 Nasal Screen MRSA/MSSA - Final Nasal Swab 01/31/25 10:32 Blood Culture - Preliminary Blood Assessment and Plan Assessment: Impression: Acute hypoxic respiratory failure, multifactorial Acute haemophilus influenza multilobar pneumonia Acute COVID-19 infection, possible acute COVID-19 pneumonia Tobacco dependence syndrome Acute exacerbation of COPD Acute kidney injury, improved History of alcoholism. Recommendation: Continue Rocephin Continue albuterol and Symbicort Continue Decadron Continue GI DVT prophylaxis Counseled regarding smoking cessation Titrate FiO2 accordingly Will continue to follow Not quite ready for discharge planning at this point. Prognosis remains guarded Time with Patient: Less than 30
--- NOTE | 2025-02-03 15:58 | P.PN ---
Subjective Progress Note Date: 02/03/25 Principal diagnosis: Reason for follow-up is pneumonia Patient is a 39-year-old male with a past medical history significant for anxiety depression alcoholism and current smoker presenting to the hospital for evaluation of increasing shortness of breath and cough has been diagnosed with pneumonia sputum positive for Haemophilus influenzae and Streptococcus pneumoniae. On today's evaluation that is 02/03/2025, Patient is afebrile this morning patient patient improvement in his chest pain as well as breathing denies any worsening cough no nausea vomiting no abdominal pain or diarrhea currently on 2 L current oxygen. The patient white count is 24.8, creatinine 0.69 Objective - Vital Signs Vital signs: Vital Signs Temp 97.6 F 02/03/25 08:30 Pulse 87 02/03/25 08:30 Resp 18 02/03/25 08:30 BP 119/81 02/03/25 08:30 Pulse Ox 92 L 02/03/25 08:30 FiO2 21 01/31/25 14:29 Intake & Output 02/02/25 02/03/25 02/03/25 18:59 06:59 18:59 Intake Total 1000 Balance 1000 Intake: Oral 1000 Other: # Voids 3 - Exam GENERAL DESCRIPTION: Middle-age male lying in bed in no distress RESPIRATORY SYSTEM: Unlabored breathing , decreased breath sounds at bases HEART: S1 S2 regular rate and rhythm , ABDOMEN: Soft , no tenderness EXTREMITIES: No edema feet - Labs CBC & Chem 7: 02/03/25 05:55 02/03/25 05:55 Labs: Abnormal Lab Results - Last 24 Hours (Table) 02/02/25 02/03/25 02/03/25 Range/Units 15:52 05:55 05:55 WBC 24.9 H (3.8-10.6) k/uL RBC 4.01 L (4.30-5.90) m/uL Hgb 12.5 L (13.0-17.5) gm/dL Neutrophils # 22.1 H (1.3-7.7) k/uL D-Dimer 5.55 H (<0.60) mg/L FEU Sodium 130 L (137-145) mmol/L Glucose 130 H (74-99) mg/dL Calcium 7.7 L (8.4-10.2) mg/dL Microbiology - Last 24 Hours (Table) 01/31/25 10:32 Blood Culture - Preliminary Blood 01/31/25 10:32 Gram Stain - Preliminary Sputum Sputum Culture - Preliminary Haemophilus influenzae Streptococcus pneumoniae 02/01/25 13:05 Nasal Screen MRSA/MSSA - Final Nasal Swab Assessment and Plan (1) Sepsis Current Visit: Yes Status: Acute Code(s): A41.9 - SEPSIS, UNSPECIFIED ORGANISM SNOMED Code(s): 59784268 (2) Pneumonia Current Visit: Yes Status: Acute Code(s): J18.9 - PNEUMONIA, UNSPECIFIED ORGANISM SNOMED Code(s): 172425825 Plan: 1patient presented to hospital with sepsis in this patient who did have fever tachycardia elevated white count source is likely pneumonia likely completed 2 point in the space sputum culture currently growing Haemophilus influenzae 2-patient also tested positive for COVID-19 however clinically behaving more of a secondary bacterial pneumonia with a COVID-19 infection 3-patient sputum is growing haemophilus influenza and strep pneumo sensitivities pending continue with Rocephin in view of clinical improvement discharge antibiotics on the basis of final sensitivity of this pathogen Dictation was produced using [employer] dictation software. please excuse any grammatical, word or spelling errors. Time with Patient: Less than 30
[2025-02-03 16:12] LABS: Appearance,Urine Clear (Clear); Bilirubin,Urine Negative (Negative); Blood,Urine Negative (Negative); Color,Urine Light Yellow; Glucose,Urine (UA) Negative (Negative); Ketones,Urine Negative (Negative); Leukocyte Esterase,Urine Negative (Negative); Nitrite,Urine Negative (Negative); PH, Urine 6.5 (5.0-8.0); Protein,Urine Negative (Negative); Specific Gravity,Urine 1.043 (1.001-1.035); Urobilinogen,Urine <2.0 mg/dL (<2.0)
[2025-02-03 16:26] LABS: Amphetamine Screen,Urine Not Detected (NotDetected); Barbiturate Screen,Urine Not Detected (NotDetected); Benzodiazepines Screen,Urine Not Detected (NotDetected); Cocaine Screen,Urine Not Detected (NotDetected); Methadone Screen, Urine Not Detected (NotDetected); Opiate Screen,Urine Detected (NotDetected); Oxycodone Screen, Urine Not Detected (NotDetected); Phencyclidine Screen,Urine Not Detected (NotDetected); Tricyclic Antidepressant,Urine Not Detected (NotDetected); Urn Cannabinoid Scrn Not Detected (NotDetected)
--- NOTE | 2025-02-03 21:28 | PN ---
PROGRESS NOTE DATE OF SERVICE: 02/02/2025 SUBJECTIVE: This 39-year-old gentleman admitted with bilateral pneumonia. The patient also had a history of COVID-19. The patient on antibiotics. PAST MEDICAL HISTORY: Reviewed. REVIEW OF SYSTEMS: 14-point review is negative. CURRENT MEDICATIONS: Reviewed. PHYSICAL EXAMINATION: VITAL SIGNS: Pulse is 93, blood pressure 148/75, and respirations 26. CHEST: Few scattered rhonchi and crackles. ABDOMEN: Soft. NERVOUS SYSTEM: No focal deficits. LABORATORY DATA: WBC 10.5. ASSESSMENT: 1. Bilateral pneumonia, left upper lobe more than right. 2. Acute COVID-19 and COVID-19 pneumonia. 3. Possible sepsis. 4. History of EtOH. RECOMMENDATIONS AND DISCUSSION: This 39-year-old gentleman, who recently attended [place], had significant pneumonia and sepsis. I would recommend D-dimer and CT angio to rule out the possible pulmonary embolism. Continue the broad-spectrum antibiotics, cultures. Infectious Disease and Pulmonary consultations. Prognosis is guarded. Further recommendations to follow. MMODL / IJN: [id number] /
[2025-02-03 21:39] LABS: HIV 2 AB Non-Reactive (Non-Reactive); HIV AB P24 Non-Reactive (Non-Reactive); HIV P24 AG Non-Reactive (Non-Reactive)
--- NOTE | 2025-02-03 22:07 | PN ---
PROGRESS NOTE DATE OF SERVICE: 02/03/2025 SUBJECTIVE: This 39-year-old gentleman admitted with significant pneumonia on the left side, also had a previous COVID positivity also. The CT of the chest was done today which I reviewed personally showed significant bilateral lesions. The left upper lobe lesion appears to be secondary bacterial. The patient has multiple other lesions suggestive of possible COVID pneumonia. The patient is being closely monitored. The patient is on broad spectrum IV antibiotics. H influenza and strep pneumonia grown from the cultures. PAST MEDICAL HISTORY: Reviewed. REVIEW OF SYSTEMS: 14-point review is negative. CURRENT MEDICATIONS: Reviewed. PHYSICAL EXAMINATION: VITAL SIGNS: Pulse is 87, blood pressure 119/80, respirations 18. HEENT: Conjunctivae normal. NECK: No JVD. CARDIOVASCULAR: S1, S2. RESPIRATIONS: Breath sounds diminished at the bases. Bilateral scattered rhonchi and crackles. ABDOMEN: Soft. NERVOUS SYSTEM: Nonfocal. LABORATORY DATA: WBC 24.9. D-dimer is 5.55. ASSESSMENT: 1. Acute bilateral pneumonia from H influenza as well as strep pneumonia possibly 2. Multifocal pneumonia. 3. History of recent COVID-19 infection with possible COVID-19 pneumonia. 4. Chronic obstructive pulmonary disease acute exacerbation. 5. History of EtOH. 6. Elevated D-dimer without any evidence of pulmonary embolism or deep vein thrombosis. 7. Elevated WBC. RECOMMENDATIONS AND DISCUSSION: I recommend to continue current medications, symptomatic treatment. Otherwise, at this time, I would recommend broad-spectrum IV antibiotics. The patient is on Rocephin and Levaquin. Vancomycin has been discontinued. Prognosis guarded. Further recommendations to follow. See orders for details. The patient is on heparin subcu. MMODL / IJN: [id number] / [facility]
[2025-02-04 05:48] LABS: Mycoplasma IgG Antibody (EIA) 1.92 INDEX (<=0.90); Mycoplasma IgM Antibody 0.83 INDEX (<=0.90)
[2025-02-04 06:07] LABS: Basophils # (A) 0.1 k/uL (0-0.2); Basophils % (A) 1 %; Eosinophils % (A) 0 %; HCT 39.1 % (39.0-53.0); HGB 12.6 gm/dL (13.0-17.5); Lymphocytes # (A) 1.6 k/uL (1.0-4.8); Lymphocytes % (A) 9 %; MCH 30.5 pg (25.0-35.0); MCHC 32.2 g/dL (31.0-37.0); MCV 94.8 fL (80.0-100.0); Mean Platelet Volume 7.8; Monocytes # (A) 0.9 k/uL (0-1.0); Monocytes % (A) 5 %; Neutrophils # (A) 14.2 k/uL (1.3-7.7); Neutrophils % (A) 80 %; Platelet Count 402 k/uL (150-450); RBC 4.13 m/uL (4.30-5.90); WBC 17.7 k/uL (3.8-10.6)
[2025-02-04 06:27] LABS: ALT 56 U/L (4-49); AST 38 U/L (17-59); African American GFR (CKD) >90 (>60 ml/min/1.73 sqM); Albumin 2.4 g/dL (3.5-5.0); Alkaline Phosphatase 77 U/L (38-126); Anion Gap 4 mmol/L; Blood Urea Nitrogen 17 mg/dL (9-20); Calcium 7.9 mg/dL (8.4-10.2); Carbon Dioxide 27 mmol/L (22-30); Chloride 102 mmol/L (98-107); Glucose 84 mg/dL (74-99); Non-African American GFR(CKD) >90 (>60 ml/min/1.73 sqM); Potassium 3.8 mmol/L (3.5-5.1); Sodium 133 mmol/L (137-145); Total Bilirubin 0.5 mg/dL (0.2-1.3); Total Protein 5.2 g/dL (6.3-8.2)
[2025-02-04] MEDS: THIAMINE 100 MG TAB PO SCH (08:49)
--- NOTE | 2025-02-04 13:02 | P.PN ---
Subjective Progress Note Date: 02/04/25 Principal diagnosis: Acute hypoxic respiratory failure with acute haemophilus influenza pneumonia and COVID-19 infection This is a 39-year-old male patient alcoholic was undergoing detoxification at [facility]. Approximate 10 days ago, the patient developed symptoms of URI a nd subsequently, his condition was waxing and waning and progressively got worse over the past 3 to 4 days. The patient had increased cough and his cough was becoming more vigorous with sputum production and the patient was feeling progressively more sick and he was spiking temperatures in addition. No pleurisy. No hemoptysis. Based on those symptoms, the patient presented to the Emergency Department. In the ED, the patient was found to be afebrile and tachycardic. Normotensive. Pulse ox on room air oxygen was 92 to 93%. White cell count was at 17, hemoglobin 12.3 and a platelet count of 360. BUN of 11 with a creatinine of 1.2 and sodium levels at 130 and a potassium level is at 4.2. Lactic acid level was 3.6 down to 3.4. Troponins are negative. LFTs are normal. COVID-19 testing is still positive. The patient had a chest x-ray that showed extensive left upper lobe consolidation/airspace disease and the patient had a large area of consolidative process in the left upper lobe. There was also bibasilar airspace changes. Based on that, the patient was started on broad-spectrum antibiotics. The patient is currently on IV Rocephin and doxycycline. Sputum Gram stain and culture was ordered. His procalcitonin level needs to be checked. Blood culture is to be checked in addition to sputum Gram stain and culture. No signs of any delirium tremens. No altered mentatio n. He seems to be quite comfortable at this point in time. He is also on IV fluids with normal citrate of 130 cc an hour. On 02/01/2025, the patient is being seen in follow-up in the emergency depa rtment. Overnight, the patient was kept in the ED as he was being treated for extensive left lung pneumonia. He is afebrile. His left ureteral cardiac complaints yesterday. Hemodynamically stable. Nevertheless, the follow-up chest x-ray shows marked progression of the left upper lobe pulmonary consolidation and the patient has extensive consolidation in the left upper lobe. The white cell count is up to 25, it was 12.7 and a platelet count is at 448. Electrolytes are all within normal limits. Lactic acid level dropped from 3.4 down to 1.8. His procalcitonin level is at 5.7. He is positive for COVID- 19. Based on that, further antibiotic adjustments were done and I put the patient on a combination of Zosyn and vancomycin and Levaquin. The patient is seen today February 02, 2025 in follow-up in the emergency department. He is currently sitting up on a stretcher. Awake and alert in no acute distress. He is maintaining O2 saturations in the 90s on 4 L/min per nasal cannula. He is afebrile. Hemodynamically stable. He is still dyspneic with conversation. Dyspneic with minimal exertion. He continues with a loose congested cough. Blood cultures revealed no growth to date. Sputum culture pending. White count 26.5. Hemoglobin 13.6. Platelets 418. Sodium 133. Potassium 4.0. Bicarb 28. BUN 15. Creatinine 0.67. Glucose 98. Procalcitonin was elevated at 5.71. He has been initiated on vancomycin, Zosyn and Levaquin. Today's chest x-ray reveals airspace consolidation persists in the left upper lobe which is slightly improved. Additional patchy infiltrate in the right perihilar right upper lobe. Patient was seen today on 02/03/2025, remains quite symptomatic but feeling better compared to how he felt on his initial presentation. Chest x-ray continues to show significant dense consolidation in the left upper lobe. CT angiogram of the chest was apparently done and it showed significant consolidation with air bronchograms compatible with pneumonia there is scattered groundglass opacities infiltrates throughout both lungs patient has acute haemophilus influenza pneumonia and in addition to this he may have COVID-19 pneumonia/infection. Patient remains on oxygen at 2 L nasal cannula with O2 sats of 92%. Considering that we have a specific organism to treat, patient is now off vancomycin off Levaquin and he is on Rocephin. CBC continues to show leukocytosis with WC count of 24.9, and his electrolytes showed low sodium of 130 potassium 3.5 the rest of the labs are unremarkable. Chest x-ray and CT of the chest were both reviewed today. Clinically actually the patient seems to be better than expected considering the significant airspace disease noted on the CT of the chest. Seen today on 02/04/2025, clinically the patient is feeling much better, his last chest x-ray yesterday continues to show significant consolidation in the left upper lobe, patient is now on room air, O2 sats is 97%, he is afebrile, my recommendation is to repeat his chest x-ray in a.m., repeat CBC in a.m., and if he does had not have fever or shortness of breath in the next 24 hours, patient could be considered for discharge. WBC count is 17.7 improving compared to 24.9 yesterday and 26.5 the day before. The rest of the labs are unremarkable, again clinically the patient is doing much better than the findings noted on the chest x-ray. And I believe the patient could be considered for discharge planning in the next 24 hours assuming he remains afebrile, and white count continues to trend down. Objective - Vital Signs Vital signs: Vital Signs Temp 98.1 F 02/04/25 08:00 Pulse 80 02/04/25 08:00 Resp 18 02/04/25 08:00 BP 125/87 02/04/25 08:00 Pulse Ox 100 02/04/25 08:00 FiO2 21 01/31/25 14:29 Intake & Output 02/03/25 02/04/25 02/04/25 18:59 06:59 18:59 Intake Total 1750 Balance 1750 Weight 72.575 kg Intake: Intake, IV Titration 950 Amount Sodium Chloride 0.9% 1, 900 000 ml @ 75 mls/hr IV . [id number] ROZ Rx#:[id number] cefTRIAXone 2 gm In 50 Sodium Chloride 0.9% 50 ml @ 100 mls/hr IVPB Q24HR ROZ Rx#:[id number] Oral 800 Other: # Voids 3 2 # Bowel Movements 0 - Exam GENERAL EXAM: Alert, pleasant 39-year-old male, on 2 L nasal cannula, O2 sat is 100% HEAD: Normocephalic. EYES: Normal reaction of pupils, equal size. NOSE: Clear with pink turbinates. THROAT: No erythema or exudates. NECK: No masses, no JVD. CHEST: No chest wall deformity. LUNGS: Scattered rhonchi noted left more so than right. CVS: S1 and S2 normal with no audible murmur, regular rhythm. ABDOMEN: No hepatosplenomegaly, normal bowel sounds, no guarding or rigidity. SKIN: No rashes CENTRAL NERVOUS SYSTEM: No focal deficits, tone is normal in all 4 extremities. EXTREMITIES: There is no peripheral edema. No clubbing, no cyanosis. P eripheral pulses are intact. - Labs CBC & Chem 7: 02/04/25 05:44 02/04/25 05:44 Labs: Abnormal Lab Results - Last 24 Hours (Table) 02/02/25 02/03/25 02/04/25 Range/Units 09:30 15:53 05:44 WBC 17.7 H (3.8-10.6) k/uL RBC 4.13 L (4.30-5.90) m/uL Hgb 12.6 L (13.0-17.5) gm/dL Neutrophils # 14.2 H (1.3-7.7) k/uL Sodium (137-145) mmol/L Creatinine (0.66-1.25) mg/dL Calcium (8.4-10.2) mg/dL ALT (4-49) U/L Total Protein (6.3-8.2) g/dL Albumin (3.5-5.0) g/dL Ur Specific [place] 1.043 H (1.001-1.035) Urine Opiates Screen Detected H (NotDetected) Mycoplasma pneumon IgG 1.92 H (<=0.90) INDEX 02/04/25 Range/Units 05:44 WBC (3.8-10.6) k/uL RBC (4.30-5.90) m/uL Hgb (13.0-17.5) gm/dL Neutrophils # (1.3-7.7) k/uL Sodium 133 L (137-145) mmol/L Creatinine 0.61 L (0.66-1.25) mg/dL Calcium 7.9 L (8.4-10.2) mg/dL ALT 56 H (4-49) U/L Total Protein 5.2 L (6.3-8.2) g/dL Albumin 2.4 L (3.5-5.0) g/dL Ur Specific [place] (1.001-1.035) Urine Opiates Screen (NotDetected) Mycoplasma pneumon IgG (<=0.90) INDEX Microbiology - Last 24 Hours (Table) 01/31/25 10:32 Gram Stain - Final Sputum Sputum Culture - Final Haemophilus influenzae Streptococcus pneumoniae 01/31/25 10:32 Blood Culture - Preliminary Blood 02/01/25 13:05 Nasal Screen MRSA/MSSA - Final Nasal Swab Assessment and Plan Assessment: Impression: Acute hypoxic respiratory failure, multifactorial Acute haemophilus influenza multilobar pneumonia Acute COVID-19 infection, possible acute COVID-19 pneumonia Tobacco dependence syndrome Acute exacerbation of COPD Acute kidney injury, improved History of alcoholism. Recommendation: Continue Rocephin Continue albuterol and Symbicort Continue Decadron Continue GI DVT prophylaxis Counseled regarding smoking cessation Consider discontinuation of oxygen Repeat chest x-ray and CBC in a.m. If the patient remains afebrile and his white count trends down, and assuming his chest x-ray shows improvement, Then we will consider clearing the patient for discharge in 24 hours on oral antibiotics. Clinical condition at this point remains relatively guarded. Time with Patient: Less than 30
--- NOTE | 2025-02-04 16:55 | P.PN ---
Subjective Progress Note Date: 02/04/25 Principal diagnosis: Reason for follow-up is pneumonia Patient is a 39-year-old male with a past medical history significant for anxiety depression alcoholism and current smoker presenting to the hospital for evaluation of increasing shortness of breath and cough has been diagnosed with pneumonia sputum positive for Haemophilus influenzae and Streptococcus pneumoniae. On today's evaluation that is 02/04/2025,the patient denies any fever or any chills, patient is breathing comfortably on room air, the patient denies chest pain he is breathing more comfortable cough decreased intensity no nausea vomiting no abdominal pain or diarrhea. The patient white count is down to 17.7, creatinine 0.61 sputum with Haemophilus influenzae and strep pneumo both sensitive to ceftriaxone Objective - Vital Signs Vital signs: Vital Signs Temp 98.1 F 02/04/25 08:00 Pulse 80 02/04/25 08:00 Resp 18 02/04/25 08:00 BP 125/87 02/04/25 08:00 Pulse Ox 100 02/04/25 08:00 FiO2 21 01/31/25 14:29 Intake & Output 02/03/25 02/04/25 02/04/25 18:59 06:59 18:59 Intake Total 1750 Balance 1750 Weight 72.575 kg Intake: Intake, IV Titration 950 Amount Sodium Chloride 0.9% 1, 900 000 ml @ 75 mls/hr IV . [id number] ROZ Rx#:[id number] cefTRIAXone 2 gm In 50 Sodium Chloride 0.9% 50 ml @ 100 mls/hr IVPB Q24HR ROZ Rx#:[id number] Oral 800 Other: # Voids 3 2 # Bowel Movements 0 - Exam GENERAL DESCRIPTION: Middle-age male lying in bed in no distress RESPIRATORY SYSTEM: Unlabored breathing , decreased breath sounds at bases HEART: S1 S2 regular rate and rhythm , ABDOMEN: Soft , no tenderness EXTREMITIES: No edema feet - Labs CBC & Chem 7: 02/04/25 05:44 02/04/25 05:44 Labs: Abnormal Lab Results - Last 24 Hours (Table) 02/02/25 02/03/25 02/04/25 Range/Units 09:30 15:53 05:44 WBC 17.7 H (3.8-10.6) k/uL RBC 4.13 L (4.30-5.90) m/uL Hgb 12.6 L (13.0-17.5) gm/dL Neutrophils # 14.2 H (1.3-7.7) k/uL Sodium (137-145) mmol/L Creatinine (0.66-1.25) mg/dL Calcium (8.4-10.2) mg/dL ALT (4-49) U/L Total Protein (6.3-8.2) g/dL Albumin (3.5-5.0) g/dL Ur Specific [place] 1.043 H (1.001-1.035) Urine Opiates Screen Detected H (NotDetected) Mycoplasma pneumon IgG 1.92 H (<=0.90) INDEX 02/04/25 Range/Units 05:44 WBC (3.8-10.6) k/uL RBC (4.30-5.90) m/uL Hgb (13.0-17.5) gm/dL Neutrophils # (1.3-7.7) k/uL Sodium 133 L (137-145) mmol/L Creatinine 0.61 L (0.66-1.25) mg/dL Calcium 7.9 L (8.4-10.2) mg/dL ALT 56 H (4-49) U/L Total Protein 5.2 L (6.3-8.2) g/dL Albumin 2.4 L (3.5-5.0) g/dL Ur Specific [place] (1.001-1.035) Urine Opiates Screen (NotDetected) Mycoplasma pneumon IgG (<=0.90) INDEX Microbiology - Last 24 Hours (Table) 01/31/25 10:32 Gram Stain - Final Sputum Sputum Culture - Final Haemophilus influenzae Streptococcus pneumoniae 01/31/25 10:32 Blood Culture - Preliminary Blood 02/01/25 13:05 Nasal Screen MRSA/MSSA - Final Nasal Swab Assessment and Plan (1) Sepsis Current Visit: Yes Status: Acute Code(s): A41.9 - SEPSIS, UNSPECIFIED ORGANISM SNOMED Code(s): 72752693 (2) Pneumonia Current Visit: Yes Status: Acute Code(s): J18.9 - PNEUMONIA, UNSPECIFIED ORGANISM SNOMED Code(s): 582107095 Plan: 1patient presented to hospital with sepsis in this patient who did have fever tachycardia elevated white count source is likely pneumonia likely completed 2 point in the space sputum culture currently growing Haemophilus influenzae 2-patient also tested positive for COVID-19 however clinically behaving more of a secondary bacterial pneumonia with a COVID-19 infection 3-patient sputum is growing haemophilus influenza and strep pneumo that is a sen sitive pathogen 4patient currently being treated with Rocephin finishing therapy with Ceftin Dictation was produced using [employer] dictation software. please excuse any grammatical, word or spelling errors. Time with Patient: Less than 30
--- NOTE | 2025-02-04 21:59 | PN ---
PROGRESS NOTE DATE OF SERVICE: 02/04/2025 SUBJECTIVE: This is a 39-year-old gentleman with a past medical history of multiple medical problems, admitted with extensive bilateral pneumonia involving the left upper lobe and as well as right side, partly COVID-19 related and partly superimposed bacterial infection. The patient is on broad spectrum IV antibiotics. PAST MEDICAL HISTORY: Reviewed. REVIEW OF SYSTEMS: Fourteen-point review is negative except as mentioned earlier. CURRENT MEDICATIONS: Reviewed. PHYSICAL EXAMINATION: VITAL SIGNS: Pulse 80, blood pressure 120/87, respirations 18. CHEST: Scattered rhonchi and crackles. ABDOMEN: Soft. NERVOUS SYSTEM: Nonfocal. LABORATORY DATA: WBC 17.7. ASSESSMENT: 1. Acute bilateral pneumonia from H influenzae as well as strep pneumonia possibly multifocal pneumonia, superadded bacterial pneumonia. 2. Partly COVID-19 related pneumonia and recent acute COVID-19 infection. 3. Chronic obstructive pulmonary disease acute exacerbation. 4. History of EtOH. 5. Elevated D-dimer without any evidence of pulmonary embolism or deep venous thrombosis. 6. Elevated WBC. RECOMMENDATIONS: Recommend to continue current management and continue symptomatic treatment. Repeat labs in the morning. Continue with broad-spectrum IV antibiotics. Closely follow with Infectious Disease and Pulmonary. Cultures noted. Further recommendations to follow. MMODL / IJN: [id number] /
--- NOTE | 2025-02-05 07:40 | XR ---
EXAMINATION TYPE: XR chest 1V portable DATE OF EXAM: 02/05/2025 6:50 AM COMPARISON: 02/03/2025 CLINICAL INDICATION: Male, 39 years old with history of Pneumonia, TECHNIQUE: Single frontal view of the chest is obtained. FINDINGS: Airspace consolidation left upper lobe persists although appears smaller in size. Patchy in filtrate right upper lobe is unchanged. The cardiac silhouette size is within normal limits. The os seous structures are intact. IMPRESSION: Airspace consolidation left upper lobe persists although appears smaller in size. Patchy infiltrate right upper lobe is unchanged. [facility], , 02/05/2025 7:38 AM
[2025-02-05 08:33] LABS: ALT 68 U/L (10-49); AST 43 U/L (14-35); Albumin 2.6 g/dL (3.8-4.9); Albumin/Globulin Ratio 0.96 Ratio (1.60-3.17); Alkaline Phosphatase 67 U/L (41-126); BUN/Creat Ratio 17.86 Ratio (12.00-20.00); Blood Urea Nitrogen 12.5 mg/dL (9.0-27.0); Carbon Dioxide 28.3 mmol/L (21.6-31.8); Chloride 101 mmol/L (96-109); Globulin 2.7 g/dL (1.6-3.3); Glucose 91 mg/dL (70-110); Potassium 3.8 mmol/L (3.5-5.5); Sodium 137 mmol/L (135-145); Total Bilirubin 0.5 mg/dL (0.3-1.2); Total Protein 5.3 g/dL (6.2-8.2)
[2025-02-05 08:50] LABS: HCT 37.3 % (39.6-50.0); HGB 12.5 g/dL (13.0-17.0); MCH 31.7 pg (27.0-32.0); MCHC 33.5 g/dL (32.0-37.0); MCV 94.7 FL (80.0-97.0); Mean Platelet Volume 9.9 FL (9.5-12.2); NRBC Per 100 WBC 0 X 10*3/uL (0.00-0.01); Platelet Count 393 X 10*3/uL (140-440); RBC 3.94 X 10*6/uL (4.40-5.60); RDW 14.2 % (11.5-14.5); WBC 16.16 X 10*3/uL (4.50-10.00)
[2025-02-05 10:42] LABS: Band Neutrophils % 1 %; Basophils # (M) 0 X 10*3/uL (0.00-0.10); Eosinophils # (M) 0 X 10*3/uL (0.04-0.35); Lymphocytes # (M) 1.62 X 10*3/uL (0.90-5.00); Metamyelocytes % 1 % (0-0); Monocytes # (M) 1.13 X 10*3/uL (0.20-1.00); Myelocytes % 1 % (0-0); Neutrophils # (M) 13.09 X 10*3/uL (1.80-7.70); Neutrophils % (M) 80 %
--- NOTE | 2025-02-05 11:52 | P.PN ---
Subjective Progress Note Date: 02/05/25 This is a 39-year-old male patient alcoholic was undergoing detoxification at [facility]. Approximate 10 days ago, the patient developed symptoms of URI and subsequently, his condition was waxing and waning and progressively got worse over the past 3 to 4 days. The patient had increased cough and his cough was becoming more vigorous with sputum production and the patient was feeling progressively more sick and he was spiking temperatures in addition. No pleurisy. No hemoptysis. Based on those symptoms, the patient presented to the Emergency Department. In the ED, the patient was found to be afebrile and tachycardic. Normotensive. Pulse ox on room air oxygen was 92 to 93%. White cell count was at 17, hemoglobin 12.3 and a platelet count of 360. BUN of 11 with a creatinine of 1.2 and sodium levels at 130 and a potassium level is at 4.2. Lactic acid level was 3.6 down to 3.4. Troponins are negative. LFTs are normal. COVID-19 testing is still positive. The patient had a chest x-ray that showed extensive left upper lobe consolidation/airspace disease and the patient had a large area of consolidative process in the left upper lobe. There was also bibasilar airspace changes. Based on that, the patient was started on broad-spectrum antibiotics. The patient is currently on IV Rocephin and doxycycline. Sputum Gram stain and culture was ordered. His procalcitonin level needs to be checked. Blood culture is to be checked in addition to sputum Gram stain and culture. No signs of any delirium tremens. No altered mentation. He seems to be quite comfortable at this point in time. He is also on IV fluids with normal citrate of 130 cc an hour. On 02/01/2025, the patient is being seen in follow-up in the emergency department. Overnight, the patient was kept in the ED as he was being treated for extensive left lung pneumonia. He is afebrile. His left ureteral cardiac complaints yesterday. Hemodynamically stable. Nevertheless, the follow-up chest x-ray shows marked progression of the left upper lobe pulmonary consolidation and the patient has extensive consolidation in the left upper lobe. The white cell count is up to 25, it was 12.7 and a platelet count is at 448. Electrolytes are all within normal limits. Lactic acid level dropped from 3.4 down to 1.8. His procalcitonin level is at 5.7. He is positive for COVID- 19. Based on that, further antibiotic adjustments were done and I put the patient on a combination of Zosyn and vancomycin and Levaquin. The patient is seen today February 02, 2025 in follow-up in the emergency department. He is currently sitting up on a stretcher. Awake and alert in no acute distress. He is maintaining O2 saturations in the 90s on 4 L/min per nasal cannula. He is afebrile. Hemodynamically stable. He is still dyspneic with conversation. Dyspneic with minimal exertion. He continues with a loose congested cough. Blood cultures revealed no growth to date. Sputum culture pending. White count 26.5. Hemoglobin 13.6. Platelets 418. Sodium 133. Potassium 4.0. Bicarb 28. BUN 15. Creatinine 0.67. Glucose 98. Procalcitonin was elevated at 5.71. He has been initiated on vancomycin, Zosyn and Levaquin. Today's chest x-ray reveals airspace consolidation persists in the left upper lobe which is slightly improved. Additional patchy infiltrate in the right perihilar right upper lobe. The patient is seen today February 05, 2025 in follow-up on the regular medical floor. He is currently sitting up in bed. Awake and alert in no acute distress. He denies any worsening shortness of breath, cough or congestion. He is maintaining O2 saturations in the 90s on room air. He has been afebrile. H emodynamically stable. Chest x-ray continues to show a left upper lobe infiltrate, somewhat smaller in size. Patchy infiltrate of the right upper lobe remains. The patient is clinically better. Him culture was positive for Streptococcus pneumoniae and haemophilus influenzae. White count 16.1. Hemoglobin 12.5. Platelets 393. Sodium 137. Potassium 3.8. Bicarb 28. BUN 13. Creatinine 0.7. Glucose 91. He remains on ceftriaxone. Continued on Symbicort, albuterol, Decadron. Heparin for DVT prophylaxis. NicoDerm patch in place. Objective - Vital Signs Vital signs: Vital Signs Temp 98.4 F 02/05/25 07:20 Pulse 66 02/05/25 07:20 Resp 17 02/05/25 07:20 BP 139/88 02/05/25 07:20 Pulse Ox 96 02/05/25 09:07 FiO2 21 01/31/25 14:29 Intake & Output 02/04/25 02/05/25 02/05/25 18:59 06:59 18:59 Intake Total 10 Balance 10 Intake: IV 10 Invasive Line 3 10 Other: # Voids 1 - Exam GENERAL EXAM: Alert, 39-year-old male, on room air oxygen, comfortable in no apparent distress. HEAD: Normocephalic. EYES: Normal reaction of pupils, equal size. NOSE: Clear with pink turbinates. THROAT: No erythema or exudates. NECK: No masses, no JVD. CHEST: No chest wall deformity. LUNGS: Equal air entry with few scattered rhonchi. CVS: S1 and S2 normal with no audible murmur, regular rhythm. ABDOMEN: No hepatosplenomegaly, normal bowel sounds, no guarding or rigidity. SPINE: No scoliosis or deformity SKIN: No rashes CENTRAL NERVOUS SYSTEM: No focal deficits, tone is normal in all 4 extremities. EXTREMITIES: There is no peripheral edema. No clubbing, no cyanosis. Peripheral pulses are intact. - Labs CBC & Chem 7: 02/05/25 05:13 02/05/25 05:13 Labs: Abnormal Lab Results - Last 24 Hours (Table) 02/05/25 02/05/25 Range/Units 05:13 05:13 WBC 16.16 H (4.50-10.00) X 10*3/uL RBC 3.94 L (4.40-5.60) X 10*6/uL Hgb 12.5 L (13.0-17.0) g/dL Hct 37.3 L (39.6-50.0) % Neutrophils # (Manual) 13.09 H (1.80-7.70) X 10*3/uL Monocytes # (Manual) 1.13 H (0.20-1.00) X 10*3/uL Eosinophils # (Manual) 0 L (0.04-0.35) X 10*3/uL Calcium 8.0 L (8.7-10.3) mg/dL AST 43 H (14-35) U/L ALT 68 H (10-49) U/L Total Protein 5.3 L (6.2-8.2) g/dL Albumin 2.6 L (3.8-4.9) g/dL Albumin/Globulin Ratio 0.96 L (1.60-3.17) Ratio Microbiology - Last 24 Hours (Table) 01/31/25 10:32 Blood Culture - Preliminary Blood 01/31/25 10:32 Gram Stain - Final Sputum Sputum Culture - Final Haemophilus influenzae Streptococcus pneumoniae Assessment and Plan Assessment: Acute multilobar pneumonia with extensive consolidation of the left upper lobe and bibasilar airspace disease. Presentation is suggestive of bacterial pneumonia that follows an acute viral/COVID-19 infection. The patient has alcoholism. No reported aspiration. He was at [facility]. Sputum culture positive for Streptococcus pneumoniae and haemophilus influenzae. Currently on ceftriaxone ID service Acute COVID-19 infection, and the patient has had previous COVID-19 infections and this is according to him his third infection Acute exacerbation of chronic obstructive pulmonary disease Chronic and ongoing tobacco dependence Acute hypoxic respiratory failure secondary to above, recovered and on room air Sinus tachycardia secondary to above. Rule out underlying pneumonia and related sepsis, improving Lactic acidosis, improved Acute kidney injury, improved Alcoholism, drinks a fifth of vodka on a daily basis. No signs of any delirium tremens and the patient is currently undergoing detoxification at [facility]. Plan: The patient was seen and evaluated Chest x-ray, labs and medications reviewed Stable and on room air Cleared for discharge Oral antibiotics per ID service Continue Symbicort, albuterol Complete 10 days of Decadron Educated regarding smoking cessation NicoDerm patch continues Follow-up closely with his PCP post discharge This patient was seen independently by the pulmonary nurse practitioner juarez nguyen pulmonary issues I have personally seen and examined the patient, performed the documentation and the assessment and plan as written. Number of minutes spent on the visit: 24 Dictation was produced using [employer] software. Please excuse any grammatical, word or spelling errors.
--- NOTE | 2025-02-05 13:43 | PN ---
PROGRESS NOTE DATE OF SERVICE: 02/05/2025 SUBJECTIVE: This is a 39-year-old gentleman admitted with bilateral pneumonia, superadded pneumonia with COVID pneumonia and is being closely monitored. At this time, the most recent chest x-ray which I reviewed personally showed significant lesions on the left upper lobe and on the right side as well, which is probably improving slightly. The white count is still elevated at 16.6. The patient is on IV antibiotics and multiple consultants are following the patient closely. PAST MEDICAL HISTORY: Reviewed. REVIEW OF SYSTEMS: Fourteen-point review of systems negative except as mentioned earlier. MEDICATIONS: Reviewed. PHYSICAL EXAMINATION: VITAL SIGNS: Pulse 66, blood pressure 139/88, respirations 18. pressure 140/90, respirations 20. HEENT: Conjunctivae normal. CARDIOVASCULAR: S1 and S2. RESPIRATIONS: Breath sounds diminished at the bases. Bilaterally scattered rhonchi and crackles. ABDOMEN: Soft. NERVOUS SYSTEM: Nonfocal. LABORATORY DATA: Reviewed. ASSESSMENT: 1. Acute bilateral pneumonia from Haemophilus influenzae as well as Streptococcus pneumonia with possible multifocal pneumonia, superadded bacterial pneumonia with sepsis. 2. Possibly COVID-related pneumonia and recent acute COVID-19 infection. 3. Chronic obstructive pulmonary disease with acute exacerbation. 4. History of EtOH. 5. Elevated D-dimer without any evidence of pulmonary embolism or deep venous thrombosis. 6. Elevated WBC. RECOMMENDATIONS: Recommended to continue current management, continue symptomatic treatment. Otherwise, at this time, continue with IV antibiotics. Repeat labs. Follow with Pulmonary and ID. Guarded prognosis. Further recommendations to follow. MMODL / IJN: [id number] /
--- NOTE | 2025-02-05 15:48 | P.PN ---
Subjective Progress Note Date: 02/05/25 Principal diagnosis: Reason for follow-up is pneumonia Patient is a 39-year-old male with a past medical history significant for anxiety depression alcoholism and current smoker presenting to the hospital for evaluation of increasing shortness of breath and cough has been diagnosed with pneumonia sputum positive for Haemophilus influenzae and Streptococcus pneumoniae. On today's evaluation that is 02/05/2025,the patient remains to be afebrile, patient is on room air not requiring supplemental oxygen and denies any shortness of breath no chest pain and cough is decreased intensity no nausea vomiting abdominal pain or diarrhea. Patient white count is 16.6 creatinine 0.7 Objective - Vital Signs Vital signs: Vital Signs Temp 98.4 F 02/05/25 07:20 Pulse 66 02/05/25 07:20 Resp 17 02/05/25 07:20 BP 139/88 02/05/25 07:20 Pulse Ox 96 02/05/25 09:07 FiO2 21 01/31/25 14:29 Intake & Output 02/04/25 02/05/25 02/05/25 18:59 06:59 18:59 Intake Total 10 Balance 10 Intake: IV 10 Invasive Line 3 10 Other: # Voids 1 - Exam GENERAL DESCRIPTION: Middle-age male lying in bed in no distress RESPIRATORY SYSTEM: Unlabored breathing , decreased breath sounds at bases HEART: S1 S2 regular rate and rhythm , ABDOMEN: Soft , no tenderness EXTREMITIES: No edema feet - Labs CBC & Chem 7: 02/05/25 05:13 02/05/25 05:13 Labs: Abnormal Lab Results - Last 24 Hours (Table) 02/05/25 02/05/25 Range/Units 05:13 05:13 WBC 16.16 H (4.50-10.00) X 10*3/uL RBC 3.94 L (4.40-5.60) X 10*6/uL Hgb 12.5 L (13.0-17.0) g/dL Hct 37.3 L (39.6-50.0) % Neutrophils # (Manual) 13.09 H (1.80-7.70) X 10*3/uL Monocytes # (Manual) 1.13 H (0.20-1.00) X 10*3/uL Eosinophils # (Manual) 0 L (0.04-0.35) X 10*3/uL Calcium 8.0 L (8.7-10.3) mg/dL AST 43 H (14-35) U/L ALT 68 H (10-49) U/L Total Protein 5.3 L (6.2-8.2) g/dL Albumin 2.6 L (3.8-4.9) g/dL Albumin/Globulin Ratio 0.96 L (1.60-3.17) Ratio Microbiology - Last 24 Hours (Table) 01/31/25 10:32 Blood Culture - Preliminary Blood 01/31/25 10:32 Gram Stain - Final Sputum Sputum Culture - Final Haemophilus influenzae Streptococcus pneumoniae Assessment and Plan (1) Sepsis Current Visit: Yes Status: Acute Code(s): A41.9 - SEPSIS, UNSPECIFIED ORGANISM SNOMED Code(s): 06761624 (2) Pneumonia Current Visit: Yes Status: Acute Code(s): J18.9 - PNEUMONIA, UNSPECIFIED ORGANISM SNOMED Code(s): 704870564 Plan: 1patient presented to hospital with sepsis in this patient who did have fever tachycardia elevated white count source is likely pneumonia likely completed 2 point in the space sputum culture currently growing Haemophilus influenzae 2-patient also tested positive for COVID-19 however clinically behaving more of a secondary bacterial pneumonia with a COVID-19 infection 3-patient sputum is growing haemophilus influenza and strep pneumo that is a sensitive pathogen 4patient slowly clinical improvement off supplemental oxygen continue with Rocephin while inpatient finishing therapy with Ceftin Dictation was produced using [employer] dictation software. please excuse any grammatical, word or spelling errors. Time with Patient: Less than 30
[2025-02-05 16:35] VITALS: RESP 18
[2025-02-06 02:10] VITALS: TEMP 98.5
[2025-02-06 08:02] LABS: HCT 39.1 % (39.6-50.0); HGB 13.1 g/dL (13.0-17.0); MCH 31.6 pg (27.0-32.0); MCHC 33.5 g/dL (32.0-37.0); MCV 94.2 FL (80.0-97.0); Mean Platelet Volume 9.9 FL (9.5-12.2); NRBC Per 100 WBC 0 X 10*3/uL (0.00-0.01); Platelet Count 435 X 10*3/uL (140-440); RBC 4.15 X 10*6/uL (4.40-5.60); WBC 12.48 X 10*3/uL (4.50-10.00)
[2025-02-06 08:11] LABS: BUN/Creat Ratio 13.86 Ratio (12.00-20.00); Blood Urea Nitrogen 9.7 mg/dL (9.0-27.0); Calcium 8.4 mg/dL (8.7-10.3); Carbon Dioxide 28.9 mmol/L (21.6-31.8); Chloride 101 mmol/L (96-109); Glucose 113 mg/dL (70-110); Potassium 4.4 mmol/L (3.5-5.5); Sodium 138 mmol/L (135-145)
[2025-02-06 08:21] VITALS: BP 150/85; PULSE 100
[2025-02-06] MEDS: dexAMETHasone 2 MG TAB PO SCH (08:55)
[2025-02-06 09:33] LABS: Band Neutrophils % 1 %; Basophils # (M) 0 X 10*3/uL (0.00-0.10); Eosinophils # (M) 0 X 10*3/uL (0.04-0.35); Monocytes # (M) 0.87 X 10*3/uL (0.20-1.00); Neutrophils # (M) 8.61 X 10*3/uL (1.80-7.70); Neutrophils % (M) 68 %
--- NOTE | 2025-02-06 14:31 | P.PN ---
Subjective Progress Note Date: 02/06/25 This is a 39-year-old male patient alcoholic was undergoing detoxification at [facility]. Approximate 10 days ago, the patient developed symptoms of URI and subsequently, his condition was waxing and waning and progressively got worse over the past 3 to 4 days. The patient had increased cough and his cough was becoming more vigorous with sputum production and the patient was feeling progressively more sick and he was spiking temperatures in addition. No pleurisy. No hemoptysis. Based on those symptoms, the patient presented to the Emergency Department. In the ED, the patient was found to be afebrile and tachycardic. Normotensive. Pulse ox on room air oxygen was 92 to 93%. White cell count was at 17, hemoglobin 12.3 and a platelet count of 360. BUN of 11 with a creatinine of 1.2 and sodium levels at 130 and a potassium level is at 4.2. Lactic acid level was 3.6 down to 3.4. Troponins are negative. LFTs are normal. COVID-19 testing is still positive. The patient had a chest x-ray that showed extensive left upper lobe consolidation/airspace disease and the patient had a large area of consolidative process in the left upper lobe. There was also bibasilar airspace changes. Based on that, the patient was started on broad-spectrum antibiotics. The patient is currently on IV Rocephin and doxycycline. Sputum Gram stain and culture was ordered. His procalcitonin level needs to be checked. Blood culture is to be checked in addition to sputum Gram stain and culture. No signs of any delirium tremens. No altered mentation. He seems to be quite comfortable at this point in time. He is also on IV fluids with normal citrate of 130 cc an hour. On 02/01/2025, the patient is being seen in follow-up in the emergency department. Overnight, the patient was kept in the ED as he was being treated for extensive left lung pneumonia. He is afebrile. His left ureteral cardiac complaints yesterday. Hemodynamically stable. Nevertheless, the follow-up chest x-ray shows marked progression of the left upper lobe pulmonary consolidation and the patient has extensive consolidation in the left upper lobe. The white cell count is up to 25, it was 12.7 and a platelet count is at 448. Electrolytes are all within normal limits. Lactic acid level dropped from 3.4 down to 1.8. His procalcitonin level is at 5.7. He is positive for COVID- 19. Based on that, further antibiotic adjustments were done and I put the patient on a combination of Zosyn and vancomycin and Levaquin. The patient is seen today February 02, 2025 in follow-up in the emergency department. He is currently sitting up on a stretcher. Awake and alert in no acute distress. He is maintaining O2 saturations in the 90s on 4 L/min per nasal cannula. He is afebrile. Hemodynamically stable. He is still dyspneic with conversation. Dyspneic with minimal exertion. He continues with a loose congested cough. Blood cultures revealed no growth to date. Sputum culture pending. White count 26.5. Hemoglobin 13.6. Platelets 418. Sodium 133. Potassium 4.0. Bicarb 28. BUN 15. Creatinine 0.67. Glucose 98. Procalcitonin was elevated at 5.71. He has been initiated on vancomycin, Zosyn and Levaquin. Today's chest x-ray reveals airspace consolidation persists in the left upper lobe which is slightly improved. Additional patchy infiltrate in the right perihilar right upper lobe. The patient is seen today February 05, 2025 in follow-up on the regular medical floor. He is currently sitting up in bed. Awake and alert in no acute distress. He denies any worsening shortness of breath, cough or congestion. He is maintaining O2 saturations in the 90s on room air. He has been afebrile. H emodynamically stable. Chest x-ray continues to show a left upper lobe infiltrate, somewhat smaller in size. Patchy infiltrate of the right upper lobe remains. The patient is clinically better. Him culture was positive for Streptococcus pneumoniae and haemophilus influenzae. White count 16.1. Hemoglobin 12.5. Platelets 393. Sodium 137. Potassium 3.8. Bicarb 28. BUN 13. Creatinine 0.7. Glucose 91. He remains on ceftriaxone. Continued on Symbicort, albuterol, Decadron. Heparin for DVT prophylaxis. NicoDerm patch in place. The patient is seen today February 06, 2025 in follow-up on the regular medical floor. He is awake and alert in no acute distress. Sitting up in bed. Mainta ining good O2 saturations in the 90s on room air. Denies any worsening shortness of breath, cough or congestion. He has been afebrile. Hemodynamically stable. Him culture was positive for haemophilus influenza and Streptococcus pneumoniae. Count 12.4. Hemoglobin 13.1. Platelets 435. Sodium 138. Potassium 4.4. Bicarb 29. BUN 10. Creatinine 0.7. Glucose 113. He remains on Symbicort, albuterol, Decadron. Heparin for DVT prophylaxis. NicoDerm patch in place. Antibiotics in the form of ceftriaxone. Objective - Vital Signs Vital signs: Vital Signs Temp 98.5 F 02/06/25 08:00 Pulse 100 02/06/25 08:00 Resp 18 02/06/25 09:00 BP 150/85 02/06/25 08:00 Pulse Ox 92 L 02/06/25 08:00 FiO2 21 01/31/25 14:29 Intake & Output 02/05/25 02/06/25 02/06/25 18:59 06:59 18:59 Intake Total 10 Balance 10 Intake: IV 10 Invasive Line 3 10 Other: # Voids 5 1 - Exam GENERAL EXAM: Alert, pleasant 39-year-old male, sitting up in bed, on room air oxygen, comfortable in no apparent distress. HEAD: Normocephalic. EYES: Normal reaction of pupils, equal size. NOSE: Clear with pink turbinates. THROAT: No erythema or exudates. NECK: No masses, no JVD. CHEST: No chest wall deformity. LUNGS: Equal air entry with few scattered rhonchi. CVS: S1 and S2 normal with no audible murmur, regular rhythm. ABDOMEN: No hepatosplenomegaly, normal bowel sounds, no guarding or rigidity. SPINE: No scoliosis or deformity SKIN: No rashes CENTRAL NERVOUS SYSTEM: No focal deficits, tone is normal in all 4 extremities. EXTREMITIES: There is no peripheral edema. No clubbing, no cyanosis. Peripheral pulses are intact. - Labs CBC & Chem 7: 02/06/25 04:46 02/06/25 04:46 Labs: Abnormal Lab Results - Last 24 Hours (Table) 02/06/25 02/06/25 Range/Units 04:46 04:46 WBC 12.48 H (4.50-10.00) X 10*3/uL RBC 4.15 L (4.40-5.60) X 10*6/uL Hct 39.1 L (39.6-50.0) % Neutrophils # (Manual) 8.61 H (1.80-7.70) X 10*3/uL Eosinophils # (Manual) 0 L (0.04-0.35) X 10*3/uL Glucose 113 H (70-110) mg/dL Calcium 8.4 L (8.7-10.3) mg/dL Microbiology - Last 24 Hours (Table) 01/31/25 10:32 Blood Culture - Final Blood Assessment and Plan Assessment: Acute multilobar pneumonia with extensive consolidation of the left upper lobe and bibasilar airspace disease. Presentation is suggestive of bacterial pneumonia that follows an acute viral/COVID-19 infection. The patient has alcoholism. No reported aspiration. He was at [facility]. Sputum culture positive for Streptococcus pneumoniae and haemophilus influenzae. Currently on ceftriaxone Acute COVID-19 infection, and the patient has had previous COVID-19 infections and this is according to him his third infection Acute exacerbation of chronic obstructive pulmonary disease Chronic and ongoing tobacco dependence Acute hypoxic respiratory failure secondary to above, recovered and on room air Sinus tachycardia secondary to above. Rule out underlying pneumonia and related sepsis, improving Lactic acidosis, improved Acute kidney injury, improved Alcoholism, drinks a fifth of vodka on a daily basis. No signs of any delirium tremens and the patient is currently undergoing detoxification at [facility]. Plan: The patient was seen and evaluated Labs and medications reviewed Stable and on room air Cleared for discharge Oral antibiotics per ID service Continue Symbicort, albuterol Complete 10 days of Decadron Follow-up closely with his PCP post discharge I have personally seen and examined the patient, performed the documentation and the assessment and plan as written. Number of minutes spent on the visit: 10 Dictation was produced using [employer]ation software. Please excuse any grammatical, word or spelling errors.
[2025-02-06 14:45] VITALS: BMI 22.3
--- NOTE | 2025-02-06 15:45 | P.PN ---
Subjective Progress Note Date: 02/06/25 Principal diagnosis: Reason for follow-up is pneumonia Patient is a 39-year-old male with a past medical history significant for anxiety depression alcoholism and current smoker presenting to the hospital for evaluation of increasing shortness of breath and cough has been diagnosed with pneumonia sputum positive for Haemophilus influenzae and Streptococcus pneumoniae. On today's evaluation that is 02/06/2025, the patient continues to be afebrile, the patient is on room air and breathing comfortably, the Pt denies having any chest pain or any worsening cough, the patient denies having any abdominal pain no vomiting or any diarrhea. Patient white count is 12.48 creatinine 0.7 Objective - Vital Signs Vital signs: Vital Signs Temp 98.5 F 02/06/25 08:00 Pulse 100 02/06/25 08:00 Resp 18 02/06/25 09:00 BP 150/85 02/06/25 08:00 Pulse Ox 92 L 02/06/25 08:00 FiO2 21 01/31/25 14:29 Intake & Output 02/05/25 02/06/25 02/06/25 18:59 06:59 18:59 Intake Total 10 Balance 10 Intake: IV 10 Invasive Line 3 10 Other: # Voids 5 1 - Exam GENERAL DESCRIPTION: Middle-age male lying in bed in no distress RESPIRATORY SYSTEM: Unlabored breathing , decreased breath sounds at bases HEART: S1 S2 regular rate and rhythm , ABDOMEN: Soft , no tenderness EXTREMITIES: No edema feet - Labs CBC & Chem 7: 02/06/25 04:46 02/06/25 04:46 Labs: Abnormal Lab Results - Last 24 Hours (Table) 02/06/25 02/06/25 Range/Units 04:46 04:46 WBC 12.48 H (4.50-10.00) X 10*3/uL RBC 4.15 L (4.40-5.60) X 10*6/uL Hct 39.1 L (39.6-50.0) % Neutrophils # (Manual) 8.61 H (1.80-7.70) X 10*3/uL Eosinophils # (Manual) 0 L (0.04-0.35) X 10*3/uL Glucose 113 H (70-110) mg/dL Calcium 8.4 L (8.7-10.3) mg/dL Microbiology - Last 24 Hours (Table) 01/31/25 10:32 Blood Culture - Final Blood Assessment and Plan (1) Sepsis Current Visit: Yes Status: Acute Code(s): A41.9 - SEPSIS, UNSPECIFIED ORGANISM SNOMED Code(s): 48044967 (2) Pneumonia Current Visit: Yes Status: Acute Code(s): J18.9 - PNEUMONIA, UNSPECIFIED ORGANISM SNOMED Code(s): 513694577 Plan: 1patient presented to hospital with sepsis in this patient who did have fever tachycardia elevated white count source is likely pneumonia likely completed 2 point in the space sputum culture currently growing Haemophilus influenzae 2-patient also tested positive for COVID-19 however clinically behaving more of a secondary bacterial pneumonia with a COVID-19 infection 3-patient sputum is growing haemophilus influenza and strep pneumo that is a sensitive pathogen 4patient is afebrile patient white count is trending down off oxygen on Rocephin finishing therapy with oral Ceftin Dictation was produced using [email or web address] dictation software. please excuse any grammatical, word or spelling errors. Time with Patient: Less than 30
--- NOTE | 2025-02-08 14:48 | P.DS ---
Providers Date of admission: 01/31/25 09:54 Expected date of discharge: 02/06/25 Attending physician: Hien Cordero Consults: 01/31/25 09:54 Consult Physician Routine Consulting Provider: Baljeet Dailey Consult Reason/Comments: pneumonia Do you want consulting provider notified?: Yes 02/02/25 13:19 Consult Physician Routine Consulting Provider: Mo Starkey Consult Reason/Comments: sepsis Do you want consulting provider notified?: Yes Primary care physician: Stated None Hospital Course: Final diagnosis Acute bilateral pneumonia from haemophilus influenza as well as Streptococcus pneumonia with multifocal pneumonia, superseded bacterial pneumonia with sepsis, present on admission Leukocytosis likely secondary to above Acute hypoxic respiratory failure secondary to assessment #1, improved and regular Likely COVID related pneumonia and recent acute COVID-19 infection COPD with acute exacerbation History of EtOH was recently at [facility] for inpatient alcohol rehab Elevated D-dimer without evidence of PE or DVT GI prophylactics DVT prophylaxis Full code Discharge disposition Patient is being discharged in a stable condition with guarded prognosis to [facility]. Patient will follow-up with primary care provider in [place] in the outpatient setting upon discharge. Patient is to continue with current medications and antibiotics on discharge. Patient should have repeat chest x- ray in 2 to 3 weeks as scheduled. Total time taken is greater than 35 minutes. Hospital course This is a 39-year-old male who was recently admitted with increasing shortness of breath noted to have acute bilateral pneumonia with acute COVID-19 infection. Patient was at [facility] having continued ongoing fevers and shortness of breath with cough and sent here for further evaluation. Patient also requiring oxygen and antibiotics being followed by pulmonary along with infectious disease. Patient clinically improving and has improved to room air and will continue short course of antibiotics along with steroids on discharge. Patient to follow-up and reestablish with a primary care provider in [place] where he lives and resources were provided. Recommend repeat chest x-ray in the next few weeks to monitor resolution of significant pneumonia. Please refer to consultation notes for further HPI. Currently no reports of chest pain, shortness of breath, or palpitations. Patient is afebrile. No reports of nausea or vomiting and patient is tolerating diet. Patient will be discharged home guarded prognosis today. Physical exam: Gen: This is a 39-year-old male who is awake, alert and oriented x 3, well- developed, thin built HEENT: Head is atraumatic, normocephalic. Pupils equal, round. Sclerae is anicteric. NECK: Supple. No JVD. No lymphadenopathy. No thyromegaly. LUNGS: Diminished breath sounds bilaterally but otherwise clear to auscultation. No wheezes or rhonchi. No intercostal retractions. HEART: Regular rate and rhythm. No murmur. ABDOMEN: Soft. Thin. Bowel sounds are present. No masses. No tenderness. EXTREMITIES: No pedal edema. No calf tenderness. NEUROLOGICAL: Patient is awake, alert and oriented x3. Cranial nerves 2 through 12 are grossly intact. Please refer to medication reconciliation sheet for a list of medications. The impression and plan of care has been dictated by Ofelia Tuttle, Nurse Practitioner as directed. Dr. Gil MD I have performed a history and examination and MDM of this patient, discussed the same with the dictator, and agree with the dictator's assessment and plan as written ,documented as a scribe. Based on total visit time, I have performed more than 50% of the visit. Patient Condition at Discharge: Fair Plan - Discharge Summary Discharge Rx Participant: No New Discharge Prescriptions: New cefuroxime axetiL [Ceftin] 500 mg PO BID 10 Days #20 tab methylPREDNISolone Dose Pack [Medrol Dose Pack] 4 mg PO DIRECTED #21 tab Budesonide-Formot 160-4.5 Mcg [Symbicort 160-4.5 Mcg Inhaler] 2 puff INHALATION RT-BID 30 Days #1 each Albuterol Inhaler [Ventolin Hfa Inhaler] 1 puff INHALATION RT-QID 30 Days #1 each Nicotine 14Mg/24Hr Patch [Habitrol] 1 patch TRANSDERM DAILY #30 patch Continue ondansetron HCL [Zofran] 8 mg PO Q6H PRN PRN Reason: Nausea Acetaminophen [Tylenol] 650 mg PO Q4H PRN MDD 2600 mg PRN Reason: Pain Or Fever > 100.5 Multivitamins, Thera [Multivitamin (formulary)] 1 tab PO DAILY Melatonin 10 mg PO HS PRN PRN Reason: Insomnia guaiFENesin [guaiFENesin Oral Solution] 200 mg PO Q4H PRN PRN Reason: Cough Loperamide HCl [Imodium A-D] 4 mg PO QID PRN MDD 16mg PRN Reason: Diarrhea Chlorpheniramine Maleate [Chlor-Trimeton] 4 mg PO Q4H PRN PRN Reason: ALLERGIES/WITHDRAWL SYMPTOMS Calcium Phos/D3/Magnesium/Zinc [Yypqbbz-Irv-Eysb-Vitamin D3] 1 tab PO TID PRN PRN Reason: WITHDRAWL SYMPTOMS traZODone HCL [Desyrel] 50 - 150 mg PO HS PRN PRN Reason: sleep Thiamine [Vitamin B-1] 100 mg PO DAILY Mylanta Regular Strength 30 ml PO Q4H PRN PRN Reason: Gi Upset Ibuprofen [Motrin Ib] 600 mg PO Q6H PRN PRN Reason: Pain Or Fever > 100.5 Discharge Medication List Acetaminophen [Tylenol] 650 mg PO Q4H PRN MDD 2600 mg 01/31/25 [History] Calcium Phos/D3/Magnesium/Zinc [Orwmqzp-Ich-Wqzd-Vitamin D3] 1 tab PO TID PRN 01/31/25 [History] Chlorpheniramine Maleate [Chlor-Trimeton] 4 mg PO Q4H PRN 01/31/25 [History] Ibuprofen [Motrin Ib] 600 mg PO Q6H PRN 01/31/25 [History] Loperamide HCl [Imodium A-D] 4 mg PO QID PRN MDD 16mg 01/31/25 [History] Melatonin 10 mg PO HS PRN 01/31/25 [History] Multivitamins, Thera [Multivitamin (formulary)] 1 tab PO DAILY 01/31/25 [History] Mylanta Regular Strength 30 ml PO Q4H PRN 01/31/25 [History] Thiamine [Vitamin B-1] 100 mg PO DAILY 01/31/25 [History] guaiFENesin [guaiFENesin Oral Solution] 200 mg PO Q4H PRN 01/31/25 [History] ondansetron HCL [Zofran] 8 mg PO Q6H PRN 01/31/25 [History] traZODone HCL [Desyrel] 50 - 150 mg PO HS PRN 01/31/25 [History] Nicotine 14Mg/24Hr Patch [Habitrol] 1 patch TRANSDERM DAILY #30 patch 02/04/25 [Rx] Albuterol Inhaler [Ventolin Hfa Inhaler] 1 puff INHALATION RT-QID 30 Days #1 each 02/06/25 [Rx] Budesonide-Formot 160-4.5 Mcg [Symbicort 160-4.5 Mcg Inhaler] 2 puff INHALATION RT-BID 30 Days #1 each 02/06/25 [Rx] cefuroxime axetiL [Ceftin] 500 mg PO BID 10 Days #20 tab 02/06/25 [Rx] methylPREDNISolone Dose Pack [Medrol Dose Pack] 4 mg PO DIRECTED #21 tab 02/06/25 [Rx] Follow up Appointment(s)/Referral(s): None,Stated [Primary Care Provider] - 1-2 days Patient Instructions/Handouts: Pneumonia (DC) Discharge Disposition: HOME SELF-CARE
== END 2025-02-06 17:02 | disposition home or self-care (01) | DRG 720 ==
LOC: EC 07:55 → EDBD 09:54 → 3SCARD 09:54 → 4SSUR 02-02 04:49 → 1SOBS 02-02 19:06 → 4SSUR 02-04 17:35
PROVIDERS: ADMIT Hospitalist; ATTEND Hospitalist
DX: A40.3 Sepsis due to Streptococcus pneumoniae (principal); J14 Pneumonia due to Hemophilus influenzae; N17.0 Acute kidney failure with tubular necrosis; J13 Pneumonia due to Streptococcus pneumoniae; R65.20 Severe sepsis without septic shock; F17.200 Nicotine dependence, unspecified, uncomplicated; J96.01 Acute respiratory failure with hypoxia; U07.1 COVID-19; J12.82 Pneumonia due to coronavirus disease 2019; E87.20 Acidosis, unspecified; F10.20 Alcohol dependence, uncomplicated; F32.A Depression, unspecified; F41.9 Anxiety disorder, unspecified; J44.0 Chronic obstructive pulmonary disease with (acute) lower respiratory infection; I95.9 Hypotension, unspecified; J44.1 Chronic obstructive pulmonary disease with (acute) exacerbation; Z86.16 Personal history of COVID-19; Z79.899 Other long term (current) drug therapy
CPT/HCPCS: 36415; 71045; 71046; 71275; 80048; 80053; 80202; 80306; 81003; 83605; 83735; 84145; 84443; 84484; 85025; 85027; 85379; 86738; 87040; 87070; 87077; 87186; 87205; 87390; 87449; 87636; 94640; 94760; 96361; 96365; 96366; 96367; 96368; 96372; 96375; 99285